=== PATIENT | female | born 1990 | race African-American/Black ===

== ENCOUNTER 2016-09-13 20:14 | Outpatient (CLI) | payer MEDICAID ==
[2016-09-13 21:16] LABS: APPEARANCE,URINE SLIGHTLY-CLOUDY; BILIRUBIN,URINE NEGATIVE (NEGATIVE); GLUCOSE, URINE NEGATIVE (NEGATIVE); KETONES,URINE NEGATIVE (NEGATIVE); LEUKOCYTE ESTERASE,URINE TRACE (NEGATIVE); NITRITE,URINE NEGATIVE (NEGATIVE); PROTEIN,URINE NEGATIVE (NEGATIVE); URINE SPECIFIC GRAVITY 1.024
[2016-09-13 21:35] LABS: URINE BARBITURATES SCREEN NEGATIVE; URINE METHADONE SCREEN NEGATIVE; URINE OPIATES LOW NEGATIVE; URINE PHENCYCLIDINE SCREEN NEGATIVE
--- NOTE | 2016-09-13 22:00 | L&D Flow Sheet ---
LD Flowsheet Datetime Report Generated by CPN: 09/13/2016 22:00 Datetime: 09/13/2016 21:41 Vital Signs NBP Sys/Leanna/Mean (mmHg): 118 (QS system process) : 73 (QS system process) : 90 (QS system process) Pulse: 99 (QS system process) Datetime: 09/13/2016 21:31 Patient Care Comments: ice provided (Sarahy Mcallitser RN) Datetime: 09/13/2016 21:29 Vaginal Exam Dilatation (cm): 2.0 (Sarahy Mcallister RN) Effacement (%): 50 (Sarahy Mcallister RN) Station: -2 (Sarahy Mcallister RN) Exam by: Imelda Mcallister RN (Sarahy Mcallister RN) Vaginal Bleeding: None (Sarahy Mcallister RN) Cervix, Consistency: Soft (Sarahy Mcallister RN) Cervix, Position: Posterior (Sarahy Mcallister RN) Vaginal Exam Comments: bollatable (Sarahy Esvin, RN) Datetime: 09/13/2016 21:26 Patient Care Comments: wet prep and gc/chlam collected (Sarahy Esvin, RN) Datetime: 09/13/2016 21:15 Uterine Activity Monitor Mode: External; Palpation (Sarahy Esvin, RN) Frequency (min): x2 (Sarahy Esvin, RN) Quality: Mild (Sarahy Esvin, RN) Duration (sec): 40-50 (Sarahy Esvin, RN) Duration Criteria: Less than Two 120 Second Contractions (Sarahy Esvin, RN) Pattern: Normal: <= 5 Contractions in 10 Minutes (Sarahy Esvin, RN) Resting Tone (Palpate): Relaxed (Sarahy Esvin, RN) Contraction Comments: irritability noted (Sarahy Esvin, RN) Datetime: 09/13/2016 21:14 Assessment A Monitor Mode: External US (Sarahy Esvin, RN) FHR Baseline Rate : 140 (Sarahy Esvin, RN) Variability: Moderate 6-25 bpm (Sarahy Esvin, RN) Accelerations: 15X15 (Sarahy Esvin, RN) Decelerations: None (Sarahy Esvin, RN) Datetime: 09/13/2016 21:13 Patient Care I/O Interventions: Up to BR (Sarahy Esvin, RN) Communication Communication Comments: Dr. Richardamn on unit and reviewed pt. arrival, complaint, hx, records faxed, fht, and toco tracing. New orders received to perform SVE, wet prep, and GC/Chlam swab at this time (Sarayh Esvin, RN) Datetime: 09/13/2016 20:41 Vital Signs NBP Sys/Elanna/Mean (mmHg): 126 (QS system process) : 86 (QS system process) : 101 (QS system process) Pulse: 88 (QS system process) Datetime: 09/13/2016 20:39 Maternal Assessment Level of Consciousness: Fully Conscious (Sarahy Esvin, RN) DTR's/Clonus: DTRs 2+; No Clonus (Sarahy Mcallister RN) Headache: Denies (Sarahy Mcallister RN) Breath Sounds, Right: Clear and Equal (Sarahy Mcallister RN) Nausea/Vomiting: Denies (Sarahy Mcallister RN) RUQ Epigastric Pain: Denies (Sarahy Mcallister RN)
[2016-09-13 23:25] LABS: CHLAM PCR NOT DETECTED (NOT DETECT)
--- NOTE | 2016-09-14 04:47 | L&D General Admission ---
General Admit Datetime Report Generated by CPN: 09/14/2016 04:45 INFORMATION Patient Age: 25 (09/13/2016 20:15:QS system process) EDC: 10/05/2016 00:00 (09/13/2016 20:26:Sarahy Villanuevaco, RN) EDC per Ultrasound: 10/05/2016 00:00 (09/13/2016 20:26:Sarahy Mcallister, RN) Baby, Number in Womb: 1 (09/14/2016 00:00:Sarahy Villanuevaco, RN) CARE Primary Web Content Specialist: [facility] (09/13/2016 20:26:Sarahy Esvin, RN) Height (in): 59 (09/13/2016 21:18:QS system process) ALLERGIES Medication Allergy: No (09/13/2016 20:26:Sarahy Esvin, RN) Medication Allergies: No Known Allergies (08/06/2012) (09/13/2016 20:15:QS system process) Latex Allergy: No Latex Allergies (09/13/2016 20:26:Sarahy Esvin, RN) COMMUNICATION Primary Language: Chinese (09/13/2016 20:26:Sarahy Esvin, RN) Medical Tx Preferred Language: Chinese (09/13/2016 20:26:Sarahy Esvin, RN) DEMOGRAPHICS Address: [address] [place] [id number] (09/13/2016 20:15:QS system process) Zipcode: [address] (09/13/2016 20:15:QS system process) Home (09/13/2016 20:15:QS system process) SSN: [id number] (09/13/2016 20:15:QS system process) Next of Kin Name: DELISA RAY (09/13/2016 20:15:QS system process) Next of Kin (09/13/2016 20:15:QS system process) Next of Kin Relationship: MO (09/13/2016 20:15:QS system process) Date of : 1990 (09/13/2016 20:15:QS system process) Marital Status: Single (09/13/2016 20:15:QS system process) Sex: Female (09/13/2016 20:15:QS system process) Race: (09/13/2016 20:15:QS system process) Ethnicity: Non- or (09/13/2016 20:15:QS system process) Yarsanism: None (09/13/2016 20:15:QS system process) LABS Gonorrhea: Negative (09/13/2016 20:26:Sarahy Mcallister RN) Chlamydia: Negative (09/13/2016 20:26:Sarahy Mcallister RN)
--- NOTE | 2016-09-14 04:47 | L&D Admission Assessment ---
LD ADM ASMT Datetime Report Generated by CPN: 09/14/2016 04:45 PATIENT ASSESSMENT Assessment Type: Triage (09/13/2016 20:39:Sarahy Esvin, RN) WEIGHT Weight (lb): 158 (09/13/2016 21:18:QS system process) Weight (kg): 71.8 (09/13/2016 21:18:QS system process) CONTRACTIONS Frequency (min): x2 (09/13/2016 23:41:Sarahy Esvin, RN) Frequency (min): x1 (09/13/2016 23:15:Sarahy Esvin, RN) Frequency (min): X1 (09/13/2016 22:45:Sarahy Esvin, RN) Frequency (min): x3 (09/13/2016 22:15:Sarahy Esvin, RN) Frequency (min): x1 (09/13/2016 21:45:Sarahy Esvin, RN) Frequency (min): x2 (09/13/2016 21:15:Sarahy Esvin, RN) Duration (sec): 40-60 (09/13/2016 23:41:Sarahy Esvin, RN) Duration (sec): 80 (09/13/2016 23:15:Sarahy Sevin, RN) Duration (sec): 60 (09/13/2016 22:45:Sarahy Esvin, RN) Duration (sec): 50-70 (09/13/2016 22:15:Sarahy Esvin, RN) Duration (sec): 50 (09/13/2016 21:45:Sarahy Esvin, RN) Duration (sec): 40-50 (09/13/2016 21:15:Sarahy Esvin, RN) Quality: Mild (09/13/2016 23:41:Sarahy Esvin, RN) Quality: Mild (09/13/2016 23:15:Sarahy Esvin, RN) Quality: Mild (09/13/2016 22:45:Sarahy Esvin, RN) Quality: Mild (09/13/2016 22:15:Sarahy Esvin, RN) Quality: Mild (09/13/2016 21:45:Sarahy Esvin, RN) Quality: Mild (09/13/2016 21:15:Sarahy Esvin, RN) Pattern: Normal: <= 5 Contractions in 10 Minutes (09/13/2016 23:41:Sarahy Esvin, RN) Pattern: Normal: <= 5 Contractions in 10 Minutes (09/13/2016 23:15:Sarahy Esvin, RN) Pattern: Normal: <= 5 Contractions in 10 Minutes (09/13/2016 22:45:Sarahy Esvin, RN) Pattern: Normal: <= 5 Contractions in 10 Minutes (09/13/2016 22:15:Sarahy Esvin, RN) Pattern: Normal: <= 5 Contractions in 10 Minutes (09/13/2016 21:45:Sarahy Esvin, RN) Pattern: Normal: <= 5 Contractions in 10 Minutes (09/13/2016 21:15:Sarahy Esvin, RN) Resting Tone [place]: Relaxed (09/13/2016 23:41:Sarahy Esvin, RN) Resting Tone [place]: Relaxed (09/13/2016 23:15:Sarahy Esvin, RN) Resting Tone [place]: Relaxed (09/13/2016 22:45:Sarahy Esvin, RN) Resting Tone [place]: Relaxed (09/13/2016 22:15:Sarahy Esvin, RN) Resting Tone [place]: Relaxed (09/13/2016 21:45:Sarahy Esvin, RN) Resting Tone [place]: Relaxed (09/13/2016 21:15:Sarahy Esvin, RN) Contraction Comments: irritability noted (09/13/2016 21:15:Sarahy Esvin, RN) VAGINAL EXAM Dilatation (cm): 2.0 (09/13/2016 23:41:Sarahy Esvin, RN) Dilatation (cm): 2.0 (09/13/2016 21:29:Sarahy Esvin, RN) Effacement (%): 50 (09/13/2016 23:41:Sarahy Esvin, RN) Effacement (%): 50 (09/13/2016 21:29:Sarahy Esvin, RN) Station: -1 (09/13/2016 23:41:Sarahy Esvin, RN) Station: -2 (09/13/2016 21:29:Sarahy Esvin, RN) NEURO Level of Consciousness: Fully Conscious (09/13/2016 20:39:Sarahy Esvin, RN) DTR's/Clonus: DTRs 2+; No Clonus (09/13/2016 20:39:Sarahy Esvin, RN) Headache: Denies (09/13/2016 20:39:Sarahy Esvin, RN) Dizziness: No (09/13/2016 20:39:Sarahy Esvin, RN) Blurred Vision: No (09/13/2016 20:39:Sarahy Esvin, RN) Extremity Numbness/Tingling : None (09/13/2016 20:39:Sarahy Esvin, RN) Extremity Movement: Full Range of Motion (09/13/2016 20:39:Sarahy Esvin, RN) CARDIOVASCULAR Heart Rhythm: Regular (09/13/2016 20:39:Sarahy Mcallister, RN) Nailbeds: [place] (09/13/2016 20:39:Sarahy Esvin, RN) Capillary Refill: Less than 3 Seconds (09/13/2016 20:39:Sarahy Esvin, RN) Lower Extremities Edema: None (09/13/2016 20:39:Sarahy Esvin, RN) Lower Extremities Edema Degree: None (09/13/2016 20:39:Sarahy Esvin, RN) Upper Extremities Edema: None (09/13/2016 20:39:Sarahy Esvin, RN) Upper Extremities Edema Degree: None (09/13/2016 20:39:Sarahy Esvin, RN) Facial Edema: None (09/13/2016 20:39:Sarahy Esvin, RN) Angela's Sign Left Leg: Negative (09/13/2016 20:39:Sarahy Esvin, RN) Angela's Sign Right Leg: Negative (09/13/2016 20:39:Sarahy Esvin, RN) DVT RISK ASSESSMENT DVT Risk Age: Age less than 41 years (09/13/2016 20:39:Sarahy Esvin, RN) DVT Risk BMI: BMI<31 (09/13/2016 20:39:Sarahy Mcallister RN) DVT Risk Surgery: None Applicable (09/13/2016 20:39:Sarahy Mcallister RN) DVT Risk Other: Women Only- or (<1 month) (09/13/2016 20:39:Sarahy Mcallister RN) DVT Risk Total: 1 (09/13/2016 20:39:QS system process) DVT Risk Text: Low Risk (<10%) No specific measures, early ambulation (09/13/2016 20:39:QS system process) RESPIRATORY Respiratory Effort: Unlabored; Regular Rhythm (09/13/2016 20:39:Sarahy Mcallister RN) Breath Sounds, Right: Clear and Equal (09/13/2016 20:39:Sarahy Mcallister RN) Cough Productivity: None (09/13/2016 20:39:Sarahy Mcallister RN) GASTROINTESTINAL Nausea/Vomiting: Denies (09/13/2016 20:39:Sarahy Mcallister RN) Bowel Sounds: Normoactive (09/13/2016 20:39:Sarahy Mcallister RN) RUQ Epigastric Pain: Denies (09/13/2016 20:39:Sarahy Mcallister RN) Bowel Patterns: Soft, Formed Stool (09/13/2016 20:39:Sarahy Mcallister RN) Hemorrhoids: None (09/13/2016 20:39:Sarahy Mcallister RN) Diet Type: Regular diet (09/13/2016 20:39:Sarahy Mcallister RN) GENITOURINARY Bladder: Nondistended (09/13/2016 20:39:Sarahy Mcallister RN) Frequency of Urination: No (09/13/2016 20:39:Sarahy Mcallister RN) Urination Burning: No (Annotations: pt. states that she has "been itchy down there for awhile") (09/13/2016 20:39:Sarahy Mcallister RN) CVA Tenderness: No (09/13/2016 20:39:Sarahy Mcallister RN) Vaginal Discharge Amount: None (09/13/2016 20:39:Sarahy Mcallister RN) Vaginal Discharge Color: Yellow (09/13/2016 20:39:Sarahy Mcallister RN) Vaginal Discharge Odor: Non-Odorous (09/13/2016 20:39:Sarahy Mcallister RN) Vaginal Discharge Character: Thick (09/13/2016 20:39:Sarahy Mcallister RN) INTEGUMENTARY Skin Color: Normal for Race (09/13/2016 20:39:Sarahy Mcallister RN) Skin Temperature: Warm (09/13/2016 20:39:Sarahy Mcallister RN) Skin Moisture: Dry (09/13/2016 20:39:Sarahy Esvin, RN) LIZA SKIN ASSESSMENT Liza Scale Sensory Perception: No Impairment- Responds to verbal commands. Has no sensory deficit which would limit ability to feel or voice pain or discomfort (09/13/2016 20:39:Sarahy Mcallister RN) Liza Scale Moisture: Rarely Moist- Skin is usually dry. Linen only requires changing at routine intervals (09/13/2016 20:39:Sarahy Mcallister RN) Liza Scale Activity: Walks Frequently- Walks outside the room at least twice a day and inside room at least every 2 hours during the day. (09/13/2016 20:39:Sarahy Mcallister RN) Liza Scale Mobility: No Limitations- Makes major and frequent changes in position without assistance (09/13/2016 20:39:Sarahy Mcallister RN) Liza Scale Nutrition: Excellent- Eats most of every meal. Never refuses a meal. Usually eats a total of 4 or more servings of meat and dairy products. Occasionally eats between meals. Does not require supplementation (09/13/2016 20:39:Sarahy Mcallister RN) Liza Scale Friction and Shear: No Apparent Problem- Moves in bed and in chair independently and has sufficient muscle strength to lift up completely during move. Maintains good position in bed or chair at all times (09/13/2016 20:39:Sarahy Mcallister RN) Liza Scale Total: 23 (09/13/2016 20:39:QS system process) Liza Scale Risk: No Risk of Pressure Ulcer Noted at this Time (09/13/2016 20:39:QS system process) SUPPORT Family Support: Family supportive (09/13/2016 20:39:Sarahy Mcallister RN) Emotional State: Calm/Relaxed (09/13/2016 20:39:Sarahy Mcallister RN) SAFETY Call Fung Within Reach: Yes (09/13/2016 20:39:Sarahy Mcallister RN) Side Rails Up: Yes (09/13/2016 20:39:Sarahy Mcallister RN) Bed Wheels Locked: Yes (09/13/2016 20:39:Sarahy Mcallister RN) Arm Bands Present: Yes (09/13/2016 20:39:Sarahy Mcallister RN) Isolation: [place] (09/13/2016 20:39:Sarahy Mcallister RN) FALL SCREEN Fall Risk History of Falling: (0) No (09/13/2016 20:39:Sarahy Mcallister RN) Fall Risk Secondary Diagnosis: (0) No (09/13/2016 20:39:Sarahy Mcallister RN) Fall Risk Ambulatory Aid: (0) None/Bedrest/Wheelchair/Nurse Assist (09/13/2016 20:39:Sarahy Mcallister RN) Fall Risk IV Therapy: (0) No (09/13/2016 20:39:Sarahy Mcallister RN) Fall Risk Gait: (0) Normal/Bedrest/Immobile (09/13/2016 20:39:Sarahy Mcallister RN) Fall Risk Mental Status: (0) Oriented to Own Ability (09/13/2016 20:39:Sarahy Mcallister RN) Fall Risk Score: 0 (09/13/2016 20:39:QS system process) Fall Risk Score Definition: No Risk: No action required (09/13/2016 20:39:QS system process) RECENT TRAVEL/INFECTIOUS DISEASE Recent Exp Communicable Disease: No (09/13/2016 20:39:Sarahy Mcallister RN) Cough or Fever: No (09/13/2016 20:39:Sarahy Mcallister RN) Foreign Travel Past 10 Days: No (09/13/2016 20:39:Sarahy Mcallister RN) Open Wounds or Sores: No (09/13/2016 20:39:Sarahy Mcallister RN) Prior Antibiotic Resistance Tx: No (09/13/2016 20:39:Sarahy Mcallister RN) Cultures Obtained: Not Applicable (09/13/2016 20:39:Sarahy Mcallister RN) Isolation Initiated: No (09/13/2016 20:39:Sarahy Mcallister RN) Pt/Family Education: Not Applicable (09/13/2016 20:39:Sarahy Mcallister RN) BABY A FHR Baseline Rate (bpm) Baby A: 135 (09/13/2016 23:41:Sarahy Mcallister RN) FHR Baseline Rate (bpm) Baby A: 135 (09/13/2016 23:15:Sarahy Mcallister RN) FHR Baseline Rate (bpm) Baby A: 135 (09/13/2016 22:45:Sarahy Mcallister RN) FHR Baseline Rate (bpm) Baby A: 135 (09/13/2016 22:15:Sarahy Mcallister RN) FHR Baseline Rate (bpm) Baby A: 140 (09/13/2016 21:45:Sarahy Esvin, RN) FHR Baseline Rate (bpm) Baby A: 140 (09/13/2016 21:15:Sarahy Esvin, RN) Variability Baby A: Moderate 6-25 bpm (09/13/2016 23:41:Sarahy Esvin, RN) Variability Baby A: Moderate 6-25 bpm (09/13/2016 23:15:Sarahy Esvin, RN) Variability Baby A: Moderate 6-25 bpm (09/13/2016 22:45:Sarahy Esvin, RN) Variability Baby A: Moderate 6-25 bpm (09/13/2016 22:15:Sarahy Esvin, RN) Variability Baby A: Moderate 6-25 bpm (09/13/2016 21:45:Sarahy Esvin, RN) Variability Baby A: Moderate 6-25 bpm (09/13/2016 21:15:Sarahy Esvin, RN) Accelerations Baby A: 15X15 (09/13/2016 23:41:Sarahy Esvin, RN) Accelerations Baby A: 15X15 (09/13/2016 23:15:Sarahy Esvin, RN) Accelerations Baby A: 15X15 (09/13/2016 22:45:Sarahy Esvin, RN) Accelerations Baby A: 15X15 (09/13/2016 22:15:Sarahy Esvin, RN) Accelerations Baby A: 15X15 (09/13/2016 21:45:Sarahy Esvin, RN) Accelerations Baby A: 15X15 (09/13/2016 21:15:Sarahy Esvin, RN) Decelerations Baby A: None (09/13/2016 23:41:Sarahy Esvin, RN) Decelerations Baby A: None (09/13/2016 23:15:Sarahy Esvin, RN) Decelerations Baby A: None (09/13/2016 22:45:Sarahy Esvin, RN) Decelerations Baby A: None (09/13/2016 22:15:Sarahy Esvin, RN) Decelerations Baby A: None (09/13/2016 21:45:Sarahy Esvin, RN) Decelerations Baby A: None (09/13/2016 21:15:Sarahy Esvin, RN)
--- NOTE | 2016-09-14 04:47 | Antepartum Discharge Summary ---
Antepartum DC Datetime Report Generated by CPN: 09/14/2016 04:45 DIET/ACTIVITY/RESTRICTIONS Diet: Regular (09/14/2016 00:00:Sarahy Esvin, RN) Activity: Normal Activity (09/14/2016 00:00:Sarahy Esvin, RN) TEACHING/INSTRUCTIONS/REFERRALS Instructions Understood: Patient Verbalized Understanding (09/14/2016 00:00:Sarahy Esvin, RN) Referrals: None (09/14/2016 00:00:Sarahy Esvin, RN) Educational Materials- Other: care notes on the labor process and and dehydration (09/14/2016 00:00:Sarahy Mcallister RN) DISCHARGE INFORMATION Discharged AMA: No (09/14/2016 00:00:Sarahy Mcallister RN) Discharge Date/Time: 09/13/2016 23:53 (09/14/2016 00:00:Sarahy Mcallister RN) Discharged To: Home (09/14/2016 00:00:Sarahy Mcallister RN) Discharge Provider Name: Dr. Best (09/14/2016 00:00:Sarahy Mcallister RN) Accompanied By: family (09/14/2016 00:00:Sarahy Mcallister RN) Discharge Method: Wheelchair (09/14/2016 00:00:Sarahy Mcallister RN) Condition: Stable (09/14/2016 00:00:Sarahy Mcallister RN) FOLLOW UP INFORMATION Follow Up With: Health Department (09/14/2016 00:00:Sarahy Mcallister RN) Follow Up On: As Scheduled (09/14/2016 00:00:Sarahy Mcallister RN) Comments: Pt. d/c to home ambulatory and in stable condition at this time. Pt. denies nay further needs and states that her pain is manageable. Pt. states she will f/u with her provider as scheduled. All pt belongings were taken with pt. Pt. off unit and care relinquished at this time (09/14/2016 00:00:Sarahy Mcallister RN)
--- NOTE | 2016-09-14 04:47 | L&D Discharge Summary ---
OB Discharge Summary Datetime Report Generated by CPN: 09/14/2016 04:45 DISCHARGE DIAGNOSIS Diagnoses/Symptoms Other: false labor Gestation: 36.6 Number of Babies in Womb: 1 DIET/ACTIVITY/RESTRICTIONS Diet: Regular Activity: Normal Activity TEACHING/INSTRUCTIONS/REFERRALS Instructions Understood: Patient Verbalized Understanding Referrals: None Educational Materials- Other: care notes on the labor process and and dehydration DISCHARGE INFORMATION Discharged AMA: No Discharge Date/Time: 09/13/2016 23:53 Discharged To: Home Discharge Provider Name: Dr. Best Accompanied By: family Discharge Method: Wheelchair Condition: Stable FOLLOW UP INFORMATION Follow Up With: Health Department Follow Up On: As Scheduled Comments: Pt. d/c to home ambulatory and in stable condition at this time. Pt. denies nay further needs and states that her pain is manageable. Pt. states she will f/u with her provider as scheduled. All pt belongings were taken with pt. Pt. off unit and care relinquished at this time
--- NOTE | 2016-09-14 04:47 | L&D Flow Sheet ---
LD Flowsheet Datetime Report Generated by CPN: 09/14/2016 04:45 Datetime: 09/13/2016 23:53 Communication Communication Comments: pt. d/c'd to home at this time. See discharge summary for more information (Sarahy Esvin, RN) Datetime: 09/13/2016 23:48 Communication Communication Comments: Care notes taught and reviewed on and dehydtration and the labor process. Pt. able to perform teachback with no diffculties noted. Pt. denies any questions or concerns at this time. (Sarahy Esvin, RN) Datetime: 09/13/2016 23:41 Uterine Activity Monitor Mode: External (Sarahy Esvin, RN) Frequency (min): x2 (Sarahy Esvin, RN) Quality: Mild (Sarahy Esvin, RN) Duration (sec): 40-60 (Sarahy Esvin, RN) Duration Criteria: Less than Two 120 Second Contractions (Sarahy Esvin, RN) Pattern: Normal: <= 5 Contractions in 10 Minutes (Sarahy Esvin, RN) Resting Tone (Palpate): Relaxed (Sarahy Esvin, RN) Assessment A Monitor Mode: External US (Sarahy Esvin, RN) FHR Baseline Rate : 135 (Sarahy Esvin, RN) Variability: Moderate 6-25 bpm (Sarahy Esvin, RN) Accelerations: 15X15 (Sarahy Esvin, RN) Decelerations: None (Sarahy Esvin, RN) Vaginal Exam Dilatation (cm): 2.0 (Sarahy Esvin, RN) Effacement (%): 50 (Sarahy Mcallister, RN) Station: -1 (Sarahy Mcallister, RN) Exam by: Imelda Mcallister RN (Sarahy Mcallister RN) Vaginal Exam Comments: bollatable (Sarahy Esvin, RN) Datetime: 09/13/2016 23:40 NBP Sys/Leanna/Mean (mmHg): 113 (QS system process) : 77 (QS system process) : 91 (QS system process) Pulse: 96 (QS system process) Temperature (F): 98.3 (Sarahy Mcallister, RN) Temperature (C): 36.8 (QS system process) Temperature Route: Oral (Sarahy Mcallister RN) LaborFlag: OB Triage (QS system process) Datetime: 09/13/2016 23:39 Communication Communication Comments: pt. made aware of POC at this time. Verbalizes understanding and denies any questions or concerns at this time (Sarahy Esvin, RN) Datetime: 09/13/2016 23:35 Vital Signs Stage of : OB Triage (Sarahy Esvin, RN) Communication Communication Comments: wet prep wnl, gc/chlam negative (Sarahy Esvin, RN) Datetime: 09/13/2016 23:15 Uterine Activity Monitor Mode: External (Sarahy Esvin, RN) Frequency (min): x1 (Sarahy Esvin, RN) Quality: Mild (Sarahy Esvin, RN) Duration (sec): 80 (Sarahy Esvin, RN) Duration Criteria: Less than Two 120 Second Contractions (Sarahy Esvin, RN) Pattern: Normal: <= 5 Contractions in 10 Minutes (Sarahy Esvin, RN) Resting Tone (Palpate): Relaxed (Sarahy Esvin, RN) Assessment A Monitor Mode: External US (Sarahy Esvin, RN) FHR Baseline Rate : 135 (Sarahy Esvin, RN) Variability: Moderate 6-25 bpm (Sarahy Esvin, RN) Accelerations: 15X15 (Sarahy Esvin, RN) Decelerations: None (Sarahy Esvin, RN) Datetime: 09/13/2016 23:12 NBP Sys/Leanna/Mean (mmHg): 120 (QS system process) : 88 (QS system process) : 99 (QS system process) Pulse: 85 (QS system process) LaborFlag: OB Triage (QS system process) Datetime: 09/13/2016 23:00 Communication Communication Comments: Pt. made aware that we are awaiting one more lab results at this time. She verbalizes understanding and denies any questions or concerns at this time (Sarahy Esvin, RN) Datetime: 09/13/2016 22:45 Uterine Activity Monitor Mode: External (Sarahy Esvin, RN) Frequency (min): X1 (Sarahy Esvin, RN) Quality: Mild (Sarahy Esvin, RN) Duration (sec): 60 (Sarahy Esvin, RN) Duration Criteria: Less than Two 120 Second Contractions (Sarahy Esvin, RN) Pattern: Normal: <= 5 Contractions in 10 Minutes (Sarahy Esvin, RN) Resting Tone (Palpate): Relaxed (Sarahy Esvin, RN) Assessment A Monitor Mode: External US (Sarahy Esvin, RN) FHR Baseline Rate : 135 (Sarahy Esvin, RN) Variability: Moderate 6-25 bpm (Sarahy Esvin, RN) Accelerations: 15X15 (Sarayh Esvin, RN) Decelerations: None (Sarahy Esvin, RN) Datetime: 09/13/2016 22:41 NBP Sys/Leanna/Mean (mmHg): 104 (QS system process) : 61 (QS system process) : 77 (QS system process) Pulse: 97 (QS system process) LaborFlag: OB Triage (QS system process) Datetime: 09/13/2016 22:25 Communication Communication Comments: Dr. Nasir on unit and reviewed labs at this time. New orders recieved to perform SVE 1 hour from first check, wait for GC/chlam results to return, obtain pt. phone number, and if SVE unchagned pt. may d/c to home (Sarahy Esvin, RN) Datetime: 09/13/2016 22:15 Uterine Activity Monitor Mode: External (Sarahy Esvin, RN) Frequency (min): x3 (Sarahy Esvin, RN) Quality: Mild (Sarahy Esvin, RN) Duration (sec): 50-70 (Sarahy Esvin, RN) Duration Criteria: Less than Two 120 Second Contractions (Sarahy Esvin, RN) Pattern: Normal: <= 5 Contractions in 10 Minutes (Sarahy Esvin, RN) Resting Tone (Palpate): Relaxed (Sarahy Esvin, RN) Assessment A Monitor Mode: External US (Sarahy Esvin, RN) FHR Baseline Rate : 135 (Sarahy Esvin, RN) Variability: Moderate 6-25 bpm (Sarahy Esvin, RN) Accelerations: 15X15 (Sarahy Esvin, RN) Decelerations: None (Sarahy Esvin, RN) Datetime: 09/13/2016 22:11 NBP Sys/Leanna/Mean (mmHg): 114 (QS system process) : 73 (QS system process) : 90 (QS system process) Pulse: 91 (QS system process) LaborFlag: OB Triage (QS system process) Datetime: 09/13/2016 21:45 Uterine Activity Monitor Mode: External (Sarahy Esvin, RN) Frequency (min): x1 (Sarahy Esvin, RN) Quality: Mild (Sarahy Esvin, RN) Duration (sec): 50 (Sarahy Esvin, RN) Duration Criteria: Less than Two 120 Second Contractions (Sarahy Esvin, RN) Pattern: Normal: <= 5 Contractions in 10 Minutes (Sarahy Esvin, RN) Resting Tone (Palpate): Relaxed (Sarahy Esvin, RN) Assessment A Monitor Mode: External US (Sarahy Esvin, RN) FHR Baseline Rate : 140 (Sarahy Esvin, RN) Variability: Moderate 6-25 bpm (Sarahy Esvin, RN) Accelerations: 15X15 (Sarahy Esvin, RN) Decelerations: None (Sarahy Esvin, RN) Datetime: 09/13/2016 21:41 NBP Sys/Leanna/Mean (mmHg): 118 (QS system process) : 73 (QS system process) : 90 (QS system process) Pulse: 99 (QS system process) LaborFlag: OB Triage (QS system process) Datetime: 09/13/2016 21:31 Patient Care Comments: ice provided (Sarahy Esvin, RN) Datetime: 09/13/2016 21:29 Vaginal Exam Dilatation (cm): 2.0 (Sarahy Esvin, RN) Effacement (%): 50 (Sarahy Esvin, RN) Station: -2 (Sarahy Esvin, RN) Exam by: Imelda Mcallister RN (Sarahy Esvin, RN) Vaginal Bleeding: None (Sarahy Esvin, RN) Cervix, Consistency: Soft (Sarahy Esvin, RN) Cervix, Position: Posterior (Sarahy Esvin, RN) Vaginal Exam Comments: bollatable (Sarahy Esvin, RN) Datetime: 09/13/2016 21:26 Patient Care Comments: wet prep and gc/chlam collected (Sarahy Esvin, RN) Datetime: 09/13/2016 21:15 Uterine Activity Monitor Mode: External; Palpation (Sarahy Esvin, RN) Frequency (min): x2 (Sarahy Esvin, RN) Quality: Mild (Sarahy Esvin, RN) Duration (sec): 40-50 (Sarahy Esvin, RN) Duration Criteria: Less than Two 120 Second Contractions (Sarahy Esvin, RN) Pattern: Normal: <= 5 Contractions in 10 Minutes (Sarahy Esvin, RN) Resting Tone (Palpate): Relaxed (Sarahy Esvin, RN) Contraction Comments: irritability noted (Sarahy Esvin, RN) Assessment A Monitor Mode: External US (Sarahy Esvin, RN) FHR Baseline Rate : 140 (Sarahy Esvin, RN) Variability: Moderate 6-25 bpm (Sarahy Esvin, RN) Accelerations: 15X15 (Sarahy Esvin, RN) Decelerations: None (Sarahy Esvin, RN) Datetime: 09/13/2016 21:13 Patient Care I/O Interventions: Up to BR (Sarahy Esvin, RN) Communication Communication Comments: Dr. Hoffamn on unit and reviewed pt. arrival, complaint, hx, records faxed, fht, and toco tracing. New orders received to perform SVE, wet prep, and GC/Chlam swab at this time (Sarahy Esvin, RN) Datetime: 09/13/2016 21:00 Vital Signs Stage of : OB Triage (Sarahy Esvin, RN) Datetime: 09/13/2016 20:41 NBP Sys/Leanna/Mean (mmHg): 126 (QS system process) : 86 (QS system process) : 101 (QS system process) Pulse: 88 (QS system process) Datetime: 09/13/2016 20:39 Maternal Assessment Level of Consciousness: Fully Conscious (Sarahy Esvin, RN) DTR's/Clonus: DTRs 2+; No Clonus (Sarahy Esvin, RN) Headache: Denies (Sarahy Esvin, RN) Breath Sounds, Right: Clear and Equal (Sarahy Esvin, RN) Nausea/Vomiting: Denies (Sarahy Esvin, RN) RUQ Epigastric Pain: Denies (Sarahy Esvin, RN)
== END 2016-09-13 23:51 | disposition home or self-care (01) ==
LOC: LC 20:14
PROVIDERS: ATTEND Student in an Organized Health Care Education/Training Program
PROC: 4A1HXCZ Monitoring of Products of Conception, Cardiac Rate, External Approach (ICD-10-PCS; principal; 2016-09-13)
DX: O47.03 False labor before 37 completed weeks of gestation, third trimester (principal); Z3A.36 36 weeks gestation of pregnancy
CPT/HCPCS: 59025; 80307; 81001; 87086; 87210; 87491; 87591

== ENCOUNTER 2016-09-14 06:06 | Inpatient (IN) | payer MEDICAID ==
[2016-09-14] MEDS ORDERED: RINGERS SOLUTION,LACTATED 1,000 ML IV ONE (06:28)
[2016-09-14] MEDS ORDERED: RINGERS SOLUTION,LACTATED 1,000 ML IV PRN (06:28)
[2016-09-14] MEDS ORDERED: PENICILLIN G POTASSIUM 5,000,000 UNIT in DEXTROSE 5%-WATER 100 ML IV ONE (06:28)
[2016-09-14] MEDS ORDERED: PENICILLIN G-K 5 MILLION UNIT VIAL ONE ×2 (06:32→12:29)
[2016-09-14 06:44] LABS: AMNISURE (ROM) POSITIVE (NEGATIVE)
[2016-09-14 06:46] LABS: APPEARANCE,URINE CLEAR; BILIRUBIN,URINE NEGATIVE (NEGATIVE); GLUCOSE, URINE NEGATIVE (NEGATIVE); KETONES,URINE NEGATIVE (NEGATIVE); LEUKOCYTE ESTERASE,URINE NEGATIVE (NEGATIVE); NITRITE,URINE NEGATIVE (NEGATIVE); PROTEIN,URINE NEGATIVE (NEGATIVE); URINE SPECIFIC GRAVITY 1.008; UROBILINOGEN,URINE NEGATIVE mg/dL (<2.0)
[2016-09-14 07:02] LABS: ABSOLUTE LYMPHOCYTES (AUTO) 1.3 10^3/uL (0.5-4.7); ABSOLUTE MONOCYTES (AUTO) 0.5 10^3/uL (0.1-1.4); ABSOLUTE NEUT (AUTO) 4.8 10^3/uL (1.7-8.2); BASOPHILS % (AUTO) 0.7 % (0-2); EOSINOPHILS % (AUTO) 0.6 % (0-6); HEMATOCRIT 37.5 % (36.0-47.0); HEMOGLOBIN 12.5 g/dL (12.0-15.5); LYMPHOCYTES % (AUTO) 19.5 % (13-45); MEAN CORPUSCULAR HEMOGLOBIN 28.6 pg (27.0-33.4); MEAN CORPUSCULAR HGB CONC 33.3 g/dL (32.0-36.0); MEAN CORPUSCULAR VOLUME 86 fl (80-97); MONOCYTES % (AUTO) 7.9 % (3-13); RED BLOOD COUNT 4.36 10^6/uL (3.72-5.28); RED CELL DISTRIBUTION WIDTH 15.2 % (11.5-14.0); SEGMENTED NEUTROPHILS % (AUTO) 71.3 % (42-78); WHITE BLOOD COUNT 6.7 10^3/uL (4.0-10.5)
[2016-09-14 07:06] LABS: URINE BARBITURATES SCREEN NEGATIVE; URINE METHADONE SCREEN NEGATIVE; URINE OPIATES LOW NEGATIVE; URINE PHENCYCLIDINE SCREEN NEGATIVE
--- NOTE | 2016-09-14 08:01 | L&D Flow Sheet ---
LD Flowsheet Datetime Report Generated by CPN: 09/14/2016 08:00 Datetime: 09/14/2016 07:39 NBP Sys/Leanna/Mean (mmHg): 126 (QS system process) : 81 (QS system process) : 99 (QS system process) Pulse: 95 (QS system process) LaborFlag: OB Triage (QS system process) Datetime: 09/14/2016 07:36 Communication Comments: Report to RN Halsmer, care relinquished. (Connie Virginiaann, RN) Datetime: 09/14/2016 07:30 Monitor Mode: External; Palpation (Connie Kossmann, RN) Frequency (min): irregular (Connie Kossmann, RN) Quality: Mild (Connie Kossmann, RN) Duration (sec): 90-120 (Connie Kossmann, RN) Resting Tone (Palpate): Relaxed (Connie Kossmann, RN) Monitor Mode: External US (Connie Kossmann, RN) FHR Baseline Rate : 140 (Connie Kossmann, RN) Variability: Moderate 6-25 bpm (Connie Kossmann, RN) Accelerations: 15X15 (Connie Kossmann, RN) Decelerations: None (Connie Kossmann, RN) Datetime: 09/14/2016 07:15 Monitor Mode: External; Palpation (Connie Kossmann, RN) Frequency (min): irregular (Connie Kossmann, RN) Quality: Mild (Connie Kossmann, RN) Duration (sec): 40-100 (Connie Kossmann, RN) Resting Tone (Palpate): Relaxed (Connie Card RN) Monitor Mode: External US (Connie Card RN) FHR Baseline Rate : 135 (Connie Card RN) Variability: Moderate 6-25 bpm (Connie Card RN) Decelerations: Variable (Connie Card, RN) Datetime: 09/14/2016 07:07 NBP Sys/Leanna/Mean (mmHg): 117 (QS system process) : 81 (QS system process) : 94 (QS system process) Pulse: 100 (QS system process) LaborFlag: OB Triage (QS system process) Datetime: 09/14/2016 07:00 Monitor Mode: External; Palpation (Connie Card RN) Frequency (min): irregular (Connie Card RN) Quality: Mild (Connie Card RN) Duration (sec): 50-60 (Connie Card RN) Resting Tone (Palpate): Relaxed (Connie Card RN) Monitor Mode: External US (Connie Card RN) FHR Baseline Rate : 140 (Connie Card, RN) Variability: Moderate 6-25 bpm (Connie Card, RN) Accelerations: 10X10 (Connie Card, RN) Decelerations: None (Connie Card, RN) Datetime: 09/14/2016 06:45 Monitor Mode: External; Palpation (Connie Card RN) Frequency (min): irregular (Connie Card, RN) Quality: Mild (Connie Card, RN) Duration (sec): 40-70 (Connie Card, RN) Resting Tone (Palpate): Relaxed (Connie Card RN) Monitor Mode: External US (Connie Card RN) FHR Baseline Rate : 145 (Connie Card, RN) Variability: Moderate 6-25 bpm (Connie Card, RN) Accelerations: 15X15 (Connie Card, RN) Decelerations: None (Connie Card, RN) IV/Blood Work: IV ACCESS ATTEMPTED X 4 TIMES. UNABLE TO OBTAIN. PATIENT WRAPPED IN WARM BLANKETS IN ATTEMPT TO WARM ARMS FOR NEXT ATTEMPT. (Connie Card RN) Datetime: 09/14/2016 06:37 NBP Sys/Leanna/Mean (mmHg): 123 (QS system process) : 86 (QS system process) : 100 (QS system process) Pulse: 103 (QS system process) Temperature (F): 97.8 (Connie Card RN) Temperature (C): 36.6 (QS system process) Temperature Route: Oral (Connie Card RN) Pain Scale: 0 (Connie Card RN) Pain Presence: None/Denies (Connie Card RN) Pain Type: N/A (Connie Card RN) LaborFlag: OB Triage (QS system process) Datetime: 09/14/2016 06:35 Monitor Interventions for UA: [place] Adjusted (Connie Card RN) Monitor Interventions for FHR: Ultrasound Adjusted (Connie Card RN) Datetime: 09/14/2016 06:26 Dilatation (cm): 2.0 (Connie Card RN) Effacement (%): 50 (Connie Card RN) Station: -3 (Annotations: ballotable) (Connie Card RN) Exam by: ASHLEY Card (Connie Card RN) Membranes Ruptured Date/Time: 09/14/2016 05:00 (Connie Card RN) Membranes Rupture Method: Spontaneous (Connie Card RN) Amniotic Fluid Color: Clear (Connie Card RN) Amniotic Fluid Amount: Moderate (Connie Card RN) Amniotic Fluid Odor: Normal (Connie Card RN) Datetime: 09/13/2016 23:53 Communication Comments: pt. d/c'd to home at this time. See discharge summary for more information (Sarahy Mcallister RN) Datetime: 09/13/2016 23:48 Communication Comments: Care notes taught and reviewed on and dehydtration and the labor process. Pt. able to perform teachback with no diffculties noted. Pt. denies any questions or concerns at this time. (Sarahy Mcallister RN) Datetime: 09/13/2016 23:41 Monitor Mode: External (Sarahy Mcallister, ASHLEY) Frequency (min): x2 (Sarahy Mcallister RN) Quality: Mild (Sarahy Mcallister RN) Duration (sec): 40-60 (Sarahy Mcallister, ASHLEY) Duration Criteria: Less than Two 120 Second Contractions (Sarahy Mcallister RN) Pattern: Normal: <= 5 Contractions in 10 Minutes (Sarahy Mcallister RN) Resting Tone (Palpate): Relaxed (Sarahy Mcallister RN) Monitor Mode: External US (Sarahy Mcallister RN) FHR Baseline Rate : 135 (Sarahy Mcallister, RN) Variability: Moderate 6-25 bpm (Sarahy Mcallister, RN) Accelerations: 15X15 (Sarahy Mcallister, RN) Decelerations: None (Sarahy Mcallister RN) Dilatation (cm): 2.0 (Sarahy Mcallister, RN) Effacement (%): 50 (Sarahy Mcallister RN) Station: -2 (Sarahy Mcallister RN) Exam by: Imelda Mcallister RN (Sarahy Mcallister RN) Vaginal Exam Comments: bollatable (Sarahy Mcallister RN) Datetime: 09/13/2016 23:40 NBP Sys/Leanna/Mean (mmHg): 113 (QS system process) : 77 (QS system process) : 91 (QS system process) Pulse: 96 (QS system process) Temperature (F): 98.3 (Sarahy Esvin, RN) Temperature (C): 36.8 (QS system process) Temperature Route: Oral (Sarahy Esvin, RN) LaborFlag: OB Triage (QS system process) Datetime: 09/13/2016 23:39 Communication Comments: pt. made aware of POC at this time. Verbalizes understanding and denies any questions or concerns at this time (Sarahy Esvin, RN) Datetime: 09/13/2016 23:35 Stage of : OB Triage (Sarahy Esvin, RN) Communication Comments: wet prep wnl, gc/chlam negative (Sarahy Esvin, RN) Datetime: 09/13/2016 23:15 Monitor Mode: External (Sarahy Esvin, RN) Frequency (min): x1 (Sarahy Esvin, RN) Quality: Mild (Sarahy Esvin, RN) Duration (sec): 80 (Sarahy Esvin, RN) Duration Criteria: Less than Two 120 Second Contractions (Sarahy Esvin, RN) Pattern: Normal: <= 5 Contractions in 10 Minutes (Sarahy Esvin, RN) Resting Tone (Palpate): Relaxed (Sarahy Esvin, RN) Monitor Mode: External US (Sarahy Esvin, RN) FHR Baseline Rate : 135 (Sarahy Esvin, RN) Variability: Moderate 6-25 bpm (Sarahy Esvin, RN) Accelerations: 15X15 (Sarahy Esvin, RN) Decelerations: None (Sarahy Esvin, RN) Datetime: 09/13/2016 23:12 NBP Sys/Leanna/Mean (mmHg): 120 (QS system process) : 88 (QS system process) : 99 (QS system process) Pulse: 85 (QS system process) LaborFlag: OB Triage (QS system process) Datetime: 09/13/2016 23:00 Communication Comments: Pt. made aware that we are awaiting one more lab results at this time. She verbalizes understanding and denies any questions or concerns at this time (Sarahy Esvin, RN) Datetime: 09/13/2016 22:45 Monitor Mode: External (Sarahy Esvin, RN) Frequency (min): X1 (Sarahy Esvin, RN) Quality: Mild (Sarahy Esvin, RN) Duration (sec): 60 (Sarahy Esvin, RN) Duration Criteria: Less than Two 120 Second Contractions (Sarahy Esvin, RN) Pattern: Normal: <= 5 Contractions in 10 Minutes (Sarahy Esvin, RN) Resting Tone (Palpate): Relaxed (Sarahy Esvin, RN) Monitor Mode: External US (Sarahy Esvin, RN) FHR Baseline Rate : 135 (Sarahy Esvin, RN) Variability: Moderate 6-25 bpm (Sarahy Esvin, RN) Accelerations: 15X15 (Sarahy Esvin, RN) Decelerations: None (Sarahy Esvin, RN) Datetime: 09/13/2016 22:41 NBP Sys/Leanna/Mean (mmHg): 104 (QS system process) : 61 (QS system process) : 77 (QS system process) Pulse: 97 (QS system process) LaborFlag: OB Triage (QS system process) Datetime: 09/13/2016 22:25 Communication Comments: Dr. Best on unit and reviewed labs at this time. New orders recieved to perform SVE 1 hour from first check, wait for GC/chlam results to return, obtain pt. phone number, and if SVE unchagned pt. may d/c to home (Sarahy Esvin, RN) Datetime: 09/13/2016 22:15 Monitor Mode: External (Sarahy Esvin, RN) Frequency (min): x3 (Sarahy Esvin, RN) Quality: Mild (Sarahy Esvin, RN) Duration (sec): 50-70 (Sarahy Esvin, RN) Duration Criteria: Less than Two 120 Second Contractions (Sarahy Esvin, RN) Pattern: Normal: <= 5 Contractions in 10 Minutes (Sarahy Esvin, RN) Resting Tone (Palpate): Relaxed (Sarahy Esvin, RN) Monitor Mode: External US (Sarahy Esvin, RN) FHR Baseline Rate : 135 (Sarahy Esvin, RN) Variability: Moderate 6-25 bpm (Sarahy Esvin, RN) Accelerations: 15X15 (Sarahy Esvin, RN) Decelerations: None (Sarahy Esvin, RN) Datetime: 09/13/2016 22:11 NBP Sys/Leanna/Mean (mmHg): 114 (QS system process) : 73 (QS system process) : 90 (QS system process) Pulse: 91 (QS system process) LaborFlag: OB Triage (QS system process)
[2016-09-14] MEDS ORDERED: OXYTOCIN/NORMAL SALINE 20 UNIT/1,000 ML RTUINJ ONE ×2 (09:07→13:52)
--- NOTE | 2016-09-14 10:00 | L&D Flow Sheet ---
LD Flowsheet Datetime Report Generated by CPN: 09/14/2016 10:00 Datetime: 09/14/2016 09:45 Monitor Mode: External (Merna Quiroga, RN) Frequency (min): 3-8 (Merna Quiroga, RN) Quality: Mild (Merna Arizaer, RN) Duration (sec): 50-80 (Merna Quiroga, RN) Resting Tone (Palpate): Relaxed (Merna Quiroga, RN) Monitor Mode: External US (Merna Quiroga, RN) FHR Baseline Rate : 140 (Merna Arizaer, RN) FHR Baseline Changes: No Baseline Change (Merna Arizaer, RN) Variability: Minimal - Undetectable to <=5 bpm (Merna Arizaer, RN) Decelerations: None (Merna Quiroga, RN) Pitocin (milliunit): Pitocin Increased to (milliunits) @ (Annotations: 4) (Merna Quiroga, RN) Datetime: 09/14/2016 09:38 NBP Sys/Leanna/Mean (mmHg): 136 (QS system process) : 61 (QS system process) : 82 (QS system process) Pulse: 109 (QS system process) Respirations: 16 (Merna Arizaer, RN) LaborFlag: OB Triage (QS system process) Datetime: 09/14/2016 09:30 Monitor Mode: External (Merna Halsmer, RN) Frequency (min): 3-5 (Merna Halsmer, RN) Quality: Mild (Merna Halsmer, RN) Duration (sec): 40-60 (Merna Halsmer, RN) Resting Tone (Palpate): Relaxed (Merna Halsmer, RN) Monitor Mode: External US (Merna Halsmer, RN) FHR Baseline Rate : 140 (Merna Halsmer, RN) FHR Baseline Changes: No Baseline Change (Merna Halsmer, RN) Variability: Minimal - Undetectable to <=5 bpm (Merna Halsmer, RN) Decelerations: None (Merna Halsmer, RN) Datetime: 09/14/2016 09:25 Pitocin (milliunit): Pitocin Started (milliunits) @ 2; Pitocin 20 Units in 1000ml NS (Merna Halsmer, RN) Datetime: 09/14/2016 09:14 I/O Interventions: Up to BR (Merna Halsmer, RN) Datetime: 09/14/2016 09:00 Monitor Mode: External (Merna Halsmer, RN) Frequency (min): OCC (Merna Halsmer, RN) Quality: Mild (Merna Halsmer, RN) Duration (sec): 50-80 (Merna Halsmer, RN) Resting Tone (Palpate): Relaxed (Merna Halsmer, RN) Monitor Mode: External US (Merna Halsmer, RN) FHR Baseline Rate : 150 (Merna Halsmer, RN) FHR Baseline Changes: No Baseline Change (Merna Halsmer, RN) Variability: Moderate 6-25 bpm (Merna Halsmer, RN) Accelerations: 15X15 (Merna Halsmer, RN) Decelerations: None (Merna Halsmer, RN) Datetime: 09/14/2016 08:37 NBP Sys/Leanna/Mean (mmHg): 108 (QS system process) : 73 (QS system process) : 85 (QS system process) Pulse: 94 (QS system process) Respirations: 16 (Merna Halsmer, RN) LaborFlag: OB Triage (QS system process) Datetime: 09/14/2016 08:30 Monitor Mode: External (Merna Halsmer, RN) Frequency (min): OCC (Merna Halsmer, RN) Quality: Mild (Merna Halsmer, RN) Resting Tone (Palpate): Relaxed (Merna Quiroga RN) Monitor Mode: External US (Merna Quiroga RN) FHR Baseline Rate : 140 (Merna Quiroga RN) FHR Baseline Changes: No Baseline Change (Merna Quiroga RN) Variability: Minimal - Undetectable to <=5 bpm (Merna Quiroga RN) Decelerations: None (Merna Quiroga RN) Datetime: 09/14/2016 08:09 NBP Sys/Leanna/Mean (mmHg): 109 (QS system process) : 73 (QS system process) : 84 (QS system process) Pulse: 98 (QS system process) Respirations: 16 (Merna Quiroga RN) LaborFlag: OB Triage (QS system process) Datetime: 09/14/2016 08:05 Patient Position/Activity: Left Lateral (Merna Quiroga RN) Hygiene: Underpad Changed (Merna Quiroga RN) Communication: RN at Bedside; RN Reviewed Strip (Merna Quiroga RN) Datetime: 09/14/2016 08:00 Monitor Mode: External; Palpation (Merna Quiroga RN) Frequency (min): 3-5 (Merna Quiroga RN) Quality: Mild (Merna Quiroga RN) Duration (sec): 50-70 (Merna Quiroga RN) Resting Tone (Palpate): Relaxed (Merna Quiroga RN) Monitor Mode: External US (Merna Quiroga RN) FHR Baseline Rate : 145 (Merna Quiroga RN) FHR Baseline Changes: No Baseline Change (Merna Quiroga RN) Variability: Moderate 6-25 bpm (Merna Quiroga RN) Accelerations: 15X15 (Merna Quiroga RN) Decelerations: Variable (Merna Quiroga RN) Antibiotics: Penicillin IV (Units) @ (Annotations: 5 MILLION UNITS IV NOW ) (Merna Quiroga RN)
[2016-09-14] MEDS ORDERED: PENICILLIN G POTASSIUM 2,500,000 UNIT in DEXTROSE 5%-WATER 50 ML IV SCH (10:30)
[2016-09-14] MEDS ORDERED: PENICILLIN G-K 5 MILLION UNIT VIAL IV SCH (10:45)
--- NOTE | 2016-09-14 12:00 | L&D Flow Sheet ---
LD Flowsheet Datetime Report Generated by CPN: 09/14/2016 12:00 Datetime: 09/14/2016 11:43 IV/Blood Work: IV Bolus Started (Merna Farrell, RN) Patient Care Comments: IV FLUSHED WITH 10CC. TUBING REPLACED. (Merna Halsmer, RN) Datetime: 09/14/2016 11:37 NBP Sys/Leanna/Mean (mmHg): 111 (QS system process) : 73 (QS system process) : 86 (QS system process) Pulse: 110 (QS system process) LaborFlag: OB Triage (QS system process) Datetime: 09/14/2016 11:30 Patient Position/Activity: Right Lateral (Merna Halsmer, RN) Datetime: 09/14/2016 11:26 Dilatation (cm): 4.0 (Merna Arizaer, RN) Effacement (%): 70 (Merna Arizaer, RN) Station: -1 (Merna Arizaer, RN) Exam by: Vivi FARRELL RN (Merna Halsmer, RN) Datetime: 09/14/2016 11:24 Pain Scale: 5 (Merna Farrell RN) Pain Presence: Intermittent (Merna Farrell RN) Pain Type: Sharp (Merna Farrell RN) Pain Location: Perineum (Merna Farrell RN) Pain Relief Measures: Comfort Measures (Merna Farrell RN) Pain Coping: Requesting Pain Medication or Epidural (Merna Farrell RN) Comfort Measures: Breathing/Relaxation; Coaching (Merna Farrell RN) LaborFlag: OB Triage (QS system process) Datetime: 09/14/2016 11:15 Monitor Mode: External (Merna Farrell RN) Frequency (min): 2-4 (Merna Farrell RN) Quality: Moderate (Merna Farrell RN) Duration (sec): 50-70 (Merna Farrell RN) Resting Tone (Palpate): Relaxed (Merna Farrell RN) Monitor Mode: External US (Merna Farrell RN) Monitor Interventions for FHR: Ultrasound Adjusted (Merna Farrell RN) FHR Baseline Rate : 150 (Merna Farrell RN) FHR Baseline Changes: No Baseline Change (Merna Farrell RN) Variability: Moderate 6-25 bpm (Merna Farrell RN) Decelerations: None (Merna Farrell RN) Pitocin (milliunit): Pitocin Increased to (milliunits) @ (Annotations: 14) (Merna Farrell RN) Communication: RN at Bedside; RN Reviewed Strip (Merna Halsmer, RN) Datetime: 09/14/2016 11:08 Patient Care Comments: pt sitting in rocking chair (Merna Halsmer, RN) Datetime: 09/14/2016 11:07 I/O Interventions: Up to BR (Merna Halsmer, RN) Datetime: 09/14/2016 11:01 Monitor Interventions for FHR: Ultrasound Adjusted (Merna Halsmer, RN) Comments: MATERNAL HR BEING TRACED. (Merna Halsmer, RN) Datetime: 09/14/2016 11:00 Monitor Mode: External (Merna Halsmer, RN) Frequency (min): 2-5 (Merna Halsmer, RN) Quality: Mild/Moderate (Merna Halsmer, RN) Duration (sec): 50-80 (Merna Halsmer, RN) Resting Tone (Palpate): Relaxed (Merna Halsmer, RN) Monitor Mode: External US (Merna Halsmer, RN) FHR Baseline Rate : 150 (Merna Halsmer, RN) FHR Baseline Changes: No Baseline Change (Merna Halsmer, RN) Variability: Moderate 6-25 bpm (Merna Halsmer, RN) Decelerations: None (Merna Halsmer, RN) Pitocin (milliunit): Pitocin Increased to (milliunits) @ (Annotations: 12) (Merna Halsmer, RN) Datetime: 09/14/2016 10:45 Monitor Mode: External (Merna Halsmer, RN) Frequency (min): 3-5 (Merna Halsmer, RN) Quality: Mild/Moderate (Merna Halsmer, RN) Duration (sec): 40-60 (Merna Farrell RN) Resting Tone (Palpate): Relaxed (Merna Farrell RN) Monitor Mode: External US (Merna Farrell RN) FHR Baseline Rate : 150 (Merna Farrell RN) FHR Baseline Changes: No Baseline Change (Merna Farrell RN) Variability: Moderate 6-25 bpm (Merna Farrell RN) Decelerations: Variable (Merna Farrell RN) Pitocin (milliunit): Pitocin Increased to (milliunits) @ (Annotations: 10) (Merna Farrell RN) Datetime: 09/14/2016 10:38 NBP Sys/Leanna/Mean (mmHg): 100 (QS system process) : 62 (QS system process) : 75 (QS system process) Pulse: 112 (QS system process) Respirations: 16 (Merna Farrell RN) Pain Scale: 3 (Merna Farrell RN) Pain Presence: Intermittent (Merna Farrell RN) Pain Type: Sharp (Merna Farrell RN) Pain Location: Abdomen (Merna Farrell RN) Pain Goal: 2 (Merna Farrell RN) Pain Relief Measures: Comfort Measures (Merna Farrell RN) Pain Coping: Talking Through Contractions (Merna Farrell RN) LaborFlag: OB Triage (QS system process) Datetime: 09/14/2016 10:30 Monitor Mode: External (Merna Halsmer, RN) Frequency (min): 3-4 (Merna Halsmer, RN) Quality: Mild (Merna Halsmer, RN) Duration (sec): 50-80 (Merna Halsmer, RN) Resting Tone (Palpate): Relaxed (Merna Halsmer, RN) Monitor Mode: External US (Merna Halsmer, RN) FHR Baseline Rate : 150 (Merna Halsmer, RN) Variability: Moderate 6-25 bpm (Merna Halsmer, RN) Decelerations: None (Merna Halsmer, RN) Pitocin (milliunit): Pitocin Increased to (milliunits) @ (Annotations: 8) (Merna Halsmer, RN) Datetime: 09/14/2016 10:15 Monitor Mode: External (Merna Halsmer, RN) Frequency (min): 4-7 (Merna Halsmer, RN) Quality: Mild (Merna Halsmer, RN) Duration (sec): 50-80 (Merna Halsmer, RN) Resting Tone (Palpate): Relaxed (Merna Halsmer, RN) Monitor Mode: External US (Merna Halsmer, RN) FHR Baseline Rate : 140 (Merna Halsmer, RN) FHR Baseline Changes: No Baseline Change (Merna Halsmer, RN) Variability: Moderate 6-25 bpm (Merna Halsmer, RN) Accelerations: Prolonged (Merna Halsmer, RN) Decelerations: None (Merna Halsmer, RN) Pitocin (milliunit): Pitocin Remains (milliunits) @ (Annotations: 6) (Merna Halsmer, RN) Datetime: 09/14/2016 10:07 NBP Sys/Leanna/Mean (mmHg): 107 (QS system process) : 68 (QS system process) : 81 (QS system process) Pulse: 105 (QS system process) Respirations: 16 (Merna Haldonnaer, RN) Temperature (F): 97.6 (Merna Halsmer, RN) Temperature (C): 36.4 (QS system process) Temperature Route: Oral (Merna Halsmer, RN) LaborFlag: OB Triage (QS system process) Datetime: 09/14/2016 10:02 Monitor Interventions for FHR: Ultrasound Adjusted (Merna Arizaer, RN) Datetime: 09/14/2016 10:00 Monitor Mode: External (Merna Farrell RN) Frequency (min): 4-5 (Merna Farrell RN) Quality: Mild (Merna Farrell RN) Duration (sec): 50-80 (Merna Farrell RN) Resting Tone (Palpate): Relaxed (Merna Farrell RN) Monitor Mode: External US (Merna Farrell RN) FHR Baseline Rate : 140 (Merna Farrell RN) FHR Baseline Changes: No Baseline Change (Merna Farrell RN) Variability: Moderate 6-25 bpm (Merna Farrell RN) Decelerations: None (Merna Farrell RN) Pitocin (milliunit): Pitocin Increased to (milliunits) @ (Annotations: 6) (Merna Farrell RN)
[2016-09-14] MEDS ORDERED: FENTANYL/BUPIVACAINE/NS/PF 0 MCG/0 ML RTUINJ EPI ONE (12:05)
[2016-09-14] MEDS ORDERED: EPHEDRINE SULFATE INJ 50 MG/1 ML AMPULE ONE (12:05)
[2016-09-14] MEDS ORDERED: BUPIVACAINE HCL 0.25 % INJ/PF (2.5 MG/1 ML) 30 ML VIAL ONE (12:06)
[2016-09-14] MEDS ORDERED: FENTANYL CITRATE INJ/PF 100 MCG/2 ML AMPUL ONE ×2 (12:07→13:36)
[2016-09-14] MEDS ORDERED: MISOPROSTOL 0.2 MG TABLET ONE (13:52)
[2016-09-14] MEDS ORDERED: LIDOCAINE 1% INJ-PF (10 MG/ML) 30 ML SDV ONE (13:52)
--- NOTE | 2016-09-14 14:00 | L&D Flow Sheet ---
LD Flowsheet Datetime Report Generated by CPN: 09/14/2016 14:00 Datetime: 09/14/2016 13:59 Stage of : Recovery (Radha Adeel, RN) Datetime: 09/14/2016 13:41 NBP Sys/Leanna/Mean (mmHg): 154 (QS system process) : 103 (QS system process) : 122 (QS system process) LaborFlag: OB Triage (QS system process) Datetime: 09/14/2016 13:30 NBP Sys/Leanna/Mean (mmHg): 134 (QS system process) : 79 (QS system process) : 99 (QS system process) Pulse: 104 (QS system process) LaborFlag: OB Triage (QS system process) Datetime: 09/14/2016 13:24 NBP Sys/Leanna/Mean (mmHg): 105 (QS system process) : 50 (QS system process) : 73 (QS system process) Pulse: 105 (QS system process) LaborFlag: OB Triage (QS system process) Datetime: 09/14/2016 13:23 NBP Sys/Leanna/Mean (mmHg): 117 (QS system process) : 57 (QS system process) : 82 (QS system process) Pulse: 101 (QS system process) LaborFlag: OB Triage (QS system process) Datetime: 09/14/2016 13:22 NBP Sys/Leanna/Mean (mmHg): 118 (QS system process) : 56 (QS system process) : 81 (QS system process) Pulse: 89 (QS system process) LaborFlag: OB Triage (QS system process) Datetime: 09/14/2016 13:20 NBP Sys/Leanna/Mean (mmHg): 135 (QS system process) : 75 (QS system process) : 97 (QS system process) Pulse: 113 (QS system process) LaborFlag: OB Triage (QS system process) Datetime: 09/14/2016 13:19 NBP Sys/Leanna/Mean (mmHg): 108 (QS system process) : 55 (QS system process) : 76 (QS system process) Pulse: 104 (QS system process) LaborFlag: OB Triage (QS system process) Datetime: 09/14/2016 13:18 NBP Sys/Leanna/Mean (mmHg): 111 (QS system process) : 63 (QS system process) : 82 (QS system process) Pulse: 95 (QS system process) LaborFlag: OB Triage (QS system process) Datetime: 09/14/2016 13:17 NBP Sys/Leanna/Mean (mmHg): 104 (QS system process) : 70 (QS system process) : 83 (QS system process) Pulse: 113 (QS system process) LaborFlag: OB Triage (QS system process) Datetime: 09/14/2016 13:16 NBP Sys/Leanna/Mean (mmHg): 138 (QS system process) : 64 (QS system process) : 92 (QS system process) Pulse: 102 (QS system process) LaborFlag: OB Triage (QS system process) Datetime: 09/14/2016 13:15 NBP Sys/Leanna/Mean (mmHg): 119 (QS system process) : 56 (QS system process) : 81 (QS system process) Pulse: 109 (QS system process) LaborFlag: OB Triage (QS system process) Datetime: 09/14/2016 13:13 NBP Sys/Leanna/Mean (mmHg): 128 (QS system process) : 74 (QS system process) : 93 (QS system process) Pulse: 90 (QS system process) LaborFlag: OB Triage (QS system process) Datetime: 09/14/2016 13:12 NBP Sys/Leanna/Mean (mmHg): 135 (QS system process) : 70 (QS system process) : 96 (QS system process) Pulse: 96 (QS system process) LaborFlag: OB Triage (QS system process) Datetime: 09/14/2016 13:11 NBP Sys/Leanna/Mean (mmHg): 146 (QS system process) : 80 (QS system process) : 107 (QS system process) Pulse: 96 (QS system process) LaborFlag: OB Triage (QS system process) Datetime: 09/14/2016 13:09 NBP Sys/Leanna/Mean (mmHg): 134 (QS system process) : 90 (QS system process) : 106 (QS system process) Pulse: 111 (QS system process) LaborFlag: OB Triage (QS system process) Datetime: 09/14/2016 13:04 NBP Sys/Leanna/Mean (mmHg): 141 (QS system process) : 96 (QS system process) : 114 (QS system process) Pulse: 65 (QS system process) LaborFlag: OB Triage (QS system process) Datetime: 09/14/2016 13:03 NBP Sys/Leanna/Mean (mmHg): 133 (QS system process) : 87 (QS system process) : 103 (QS system process) Pulse: 118 (QS system process) LaborFlag: OB Triage (QS system process) Datetime: 09/14/2016 13:00 NBP Sys/Leanna/Mean (mmHg): 135 (QS system process) : 62 (QS system process) : 95 (QS system process) Pulse: 94 (QS system process) LaborFlag: OB Triage (QS system process) Datetime: 09/14/2016 12:59 NBP Sys/Leanna/Mean (mmHg): 130 (QS system process) : 80 (QS system process) : 100 (QS system process) Pulse: 116 (QS system process) LaborFlag: OB Triage (QS system process) Datetime: 09/14/2016 12:58 NBP Sys/Leanna/Mean (mmHg): 135 (QS system process) : 87 (QS system process) : 106 (QS system process) Pulse: 107 (QS system process) LaborFlag: OB Triage (QS system process) Datetime: 09/14/2016 12:37 NBP Sys/Leanna/Mean (mmHg): 128 (QS system process) : 77 (QS system process) : 96 (QS system process) Pulse: 114 (QS system process) Respirations: 22 (Merna Quiroga RN) Antibiotics: Penicillin IV (Units) @ (Annotations: 2.5 MILLION UNITS IVPB) (Merna Quiroga RN) LaborFlag: OB Triage (QS system process) Datetime: 09/14/2016 12:34 Communication Comments: Dustin DE LA GARZA RN REPORT GIVEN AND CARE RELINQUISHED AT THIS TIME. (Merna Arizaer, RN) Datetime: 09/14/2016 12:30 Monitor Mode: External; Palpation (Merna Quiroga, RN) Frequency (min): 2-3 (Merna Arizaer, RN) Quality: Mild/Moderate (Merna Haldonnaer, RN) Duration (sec): 50-80 (Merna Haldonnaer, RN) Resting Tone (Palpate): Relaxed (Merna Arizaer, RN) Monitor Mode: External US (Merna Arizaer, RN) FHR Baseline Rate : 140 (Merna Haldonnaer, RN) FHR Baseline Changes: No Baseline Change (Merna Halsmer, RN) Variability: Moderate 6-25 bpm (Merna Halsmer, RN) Decelerations: None (Merna Halsmer, RN) Pitocin (milliunit): Pitocin Remains (milliunits) @ (Annotations: 14) (Merna Halsmer, RN) Datetime: 09/14/2016 12:22 Communication Comments: RN AT BEDSIDE REPLACING IV TUBING BECAUSE TUBING ISN'T RUNNING EVEN WITH PRESSURE BAG APPLIED. (Merna Halsmer, RN) Datetime: 09/14/2016 12:15 Monitor Mode: External (Merna Halsmer, RN) Frequency (min): 2-4 (Merna Halsmer, RN) Quality: Mild/Moderate (Merna Halsmer, RN) Duration (sec): 50-80 (Merna Halsmer, RN) Resting Tone (Palpate): Relaxed (Merna Halsmer, RN) Monitor Mode: External US (Merna Halsmer, RN) FHR Baseline Rate : 140 (Merna Halsmer, RN) FHR Baseline Changes: No Baseline Change (Merna Halsmer, RN) Variability: Moderate 6-25 bpm (Merna Halsmer, RN) Decelerations: Variable (Merna Halsmer, RN) Pitocin (milliunit): Pitocin Remains (milliunits) @ (Annotations: 14) (Merna Halsmer, RN) Datetime: 09/14/2016 12:13 Patient Position/Activity: Hands-Knees (Merna Halsmer, RN) Datetime: 09/14/2016 12:07 NBP Sys/Leanna/Mean (mmHg): 130 (QS system process) : 89 (QS system process) : 105 (QS system process) Pulse: 101 (QS system process) Respirations: 20 (Merna Quiroga RN) LaborFlag: OB Triage (QS system process) Datetime: 09/14/2016 12:00 Monitor Mode: External (Merna Quiroga RN) Frequency (min): 2-3 (Merna Quiroga RN) Quality: Mild/Moderate (Merna Quiroga RN) Duration (sec): 40-60 (Merna Quiroga, RN) Resting Tone (Palpate): Relaxed (Merna Quiroga RN) Monitor Mode: External US (Merna Quiroga RN) FHR Baseline Rate : 140 (Merna Quiroga RN) FHR Baseline Changes: No Baseline Change (Merna Quiroga RN) Variability: Minimal - Undetectable to <=5 bpm (Merna Quiroga RN) Decelerations: Variable (Merna Quiroga RN) Pitocin (milliunit): Pitocin Remains (milliunits) @ (Annotations: 14) (Merna Quiroga RN)
[2016-09-14] MEDS ORDERED: ACETAMINOPHEN WITH CODEINE #3 TABLET PO PRN ×2 (14:24)
[2016-09-14] MEDS ORDERED: BENZOCAINE/MENTHOL AEROSOL SPRAY 56 ML TOP PRN (14:24)
[2016-09-14] MEDS ORDERED: DIBUCAINE 1% OINTMENT 28 GM TP PRN (14:24)
[2016-09-14] MEDS ORDERED: ZOLPIDEM TARTRATE 5 MG TABLET PO PRN (14:24)
[2016-09-14] MEDS ORDERED: MEASLES,MUMPS&RUBELLA VACC/PF 0.5 ML VIAL SUBCUT PRN (14:24)
[2016-09-14] MEDS ORDERED: DIPH/PERTUSS(ACELL)/TETANUS VAC/PF 0.5 ML SYR (>=10YO) IM PRN (14:24)
[2016-09-14] MEDS ORDERED: OXYTOCIN/NORMAL SALINE 1,000 ML IV PRN (14:24)
[2016-09-14] MEDS ORDERED: IBUPROFEN 800 MG TABLET ONE (16:01)
[2016-09-14] MEDS: IBUPROFEN 800 MG TABLET PO SCH (16:02)
--- NOTE | 2016-09-14 18:29 | Admission Physical ---
Datetime Report Generated by CPN: 09/14/2016 18:29 CURRENT ADMISSION Hx Assessment: The History has been Reviewed and is Current Chief Complaint: Suspected Ruptured Membranes Indication for Induction: PROM Admit Plan: Admit to Unit; Initiate Labor Induction Protocol ALLERGIES Medication Allergies: No Medication Allergies: No Known Allergies (09/14/2016) Latex: No Latex Allergies Food Allergies: denies Environmental Allergies: denies OBSTETRICAL HISTORY EDC: 10/05/2016 00:00 : 2 Para: 1 : 1 Livin Gestational Diabetes: No Rh Sensitization: No Incompetent Cervix: No DIDI: No Infertility: No ART Treatment: No Uterine Anomaly: No IUGR: No Hx Previous C/S: No Macrosomia: No Hx Loss/Stillborn: No PIH: No Hx : No Placenta Previa/Abruption: No Depression/PP Depression: No PTL/PROM: Yes Post Hemorrhage: No Current Procedures: Ultrasound; NST Obstetrical History Comments: G1: 34 weeks 4 lbs epidural G2: current , absent nasal bone per [facility] U/S SEE RECORDS Alcohol: No Marijuana : No Cocaine: No Other Illicit Drugs: No Cigarettes: Never Smoker. 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: No Heart Disease: No Hosp/Surgery: Yes Autoimmune Disorder: No Anesthetic Complications: No Kidney Disease: No Abnormal Pap Smear: No Neuro/Epilepsy: No Psychiatric Disorders: No Other Medical Diseases: No Hepatitis/Liver Disease: No Significant Family History: No Varicosities/Phlebitis: No Trauma/Violence : No Thyroid Dysfunction: No Medical History Comments: x 1 INFECTIOUS HISTORY Gonorrhea: No Genital Herpes: No Chlamydia: No Tuberculosis: No Syphilis: No Hepatitis: No HIV/AIDS Exposure: No Rash or Viral Illness: No HPV: No PHYSICAL EXAM General: Normal HEENT: Normal Neurologic: Normal Thyroid: Normal Heart: Normal Lungs: Normal Breast: Deferred Back: Normal Abdomen: Normal Genitourinary Exam: Normal Extremities: Normal DTRs: Normal Pelvic Type: Adequate Physical Exam Comments: cervix per RN exam on admission Vital Signs: Reviewed; Within Normal Limits VAGINAL EXAM Dilatation: 2 Effacement: 50 Station: -3 Contraction Comments: irreg MEMBRANES Membranes: Ruptured FETUS A EGA: 37.0 Monitoring: External US Decelerations: None FHR Category: Category I Presentation: Vertex Admit Comment: 25yo @37wga into L_D with SROM @ 0500. Pt. with limited and late entry to care (5 visits with first at 24w but had a 12w6d dating u/s with [facility] 10/05/16). Hx of PPROM and delivery at 34w in 2014. This significant for missing nasal bone on fetus. Pt. is [place], [place], GBS positive in urine (declined treatment at [facility]) had first dose of PCN this am. Desires BTL. Missed window for quad screen but had informa done at [facility] neg results per pt. Last u/s on 09/04 with EFW @ 15%ile, AC <5%ile. Denies any other hx. Started on GBS protocol and pitocin for augment. Denies pain at this time. Planning on epidural for pain control. PLANS FOR LABOR AND DELIVERY Labor and Delivery: None Pain Management: Medications; Epidural Feeding Preference: Both Benefit of Breast Feed Discussed: Yes Circumcision: Yes INFORMED CONSENT Assignment: Vanessa Sanchez MD Signature: with User ID: [email or web address] : with User ID: [email or web address]
[2016-09-14] MEDS: FERROUS SULFATE 325 MG TABLET PO SCH (18:57)
[2016-09-14] MEDS: DOCUSATE SODIUM 100 MG CAPSULE PO SCH (18:57)
--- NOTE | 2016-09-14 19:00 | L&D Flow Sheet ---
LD Flowsheet Datetime Report Generated by CPN: 09/14/2016 19:00 Datetime: 09/14/2016 16:10 NBP Sys/Leanna/Mean (mmHg): 123 (QS system process) : 68 (QS system process) : 88 (QS system process) Pulse: 90 (QS system process) Respirations: 16 (Pia Bellavance, RNC) Datetime: 09/14/2016 15:55 NBP Sys/Leanna/Mean (mmHg): 126 (QS system process) : 70 (QS system process) : 91 (QS system process) Pulse: 111 (QS system process) Respirations: 16 (Pia Guerrero, RNC) Datetime: 09/14/2016 15:40 NBP Sys/Leanna/Mean (mmHg): 129 (QS system process) : 69 (QS system process) : 91 (QS system process) Pulse: 112 (QS system process) Respirations: 16 (Laina Tineo, RN) Datetime: 09/14/2016 15:25 NBP Sys/Leanna/Mean (mmHg): 122 (QS system process) : 74 (QS system process) : 95 (QS system process) Pulse: 93 (QS system process) Respirations: 16 (Laina Tineo, RN) Datetime: 09/14/2016 15:10 NBP Sys/Leanna/Mean (mmHg): 131 (QS system process) : 67 (QS system process) : 87 (QS system process) Pulse: 97 (QS system process) Datetime: 09/14/2016 14:55 NBP Sys/Leanna/Mean (mmHg): 124 (QS system process) : 72 (QS system process) : 93 (QS system process) Pulse: 93 (QS system process) Respirations: 18 (Pia Bellavance, RNC) Datetime: 09/14/2016 14:40 NBP Sys/Leanna/Mean (mmHg): 129 (QS system process) : 74 (QS system process) : 96 (QS system process) Pulse: 92 (QS system process) Respirations: 18 (Pia Bellavance, RNC) Datetime: 09/14/2016 14:25 NBP Sys/Leanna/Mean (mmHg): 126 (QS system process) : 73 (QS system process) : 94 (QS system process) Pulse: 98 (QS system process) Respirations: 18 (Pia Bellavance, RNC) Datetime: 09/14/2016 14:14 NBP Sys/Leanna/Mean (mmHg): 126 (QS system process) : 71 (QS system process) : 93 (QS system process) Pulse: 102 (QS system process) Datetime: 09/14/2016 14:10 NBP Sys/Leanna/Mean (mmHg): 124 (QS system process) : 68 (QS system process) : 89 (QS system process) Pulse: 109 (QS system process) Respirations: 18 (Pia Bellavance, RNC) Pain Scale: 1 (Pia Bellavance, RNC) Pain Assessment Comments: patient resting with eyes closed (Pia Bellavance, RNC) Datetime: 09/14/2016 13:59 Stage of : Recovery (Radha Adeel, RN) Datetime: 09/14/2016 13:58 Stage 2 Comments: of viable male (Pia Bellavance, RNC) Datetime: 09/14/2016 13:54 Comments: utd baseline (Pia Bellavance, RNC) Datetime: 09/14/2016 13:50 Monitor Mode: Internal Scalp Electrode (Pia Bellavance, RNC) FHR Baseline Rate : 110 (Pia Bellavance, RNC) Variability: Moderate 6-25 bpm (Pia Bellavance, RNC) Accelerations: None (Pia Bellavance, RNC) Decelerations: None (Pia Bellavance, RNC) Comments: difficult to assess baseline (Pia Bellavance, RNC) Datetime: 09/14/2016 13:45 Monitor Mode: Internal Scalp Electrode (Pia Bellavance, RNC) FHR Baseline Rate : 145 (Pia Bellavance, RNC) Variability: Marked >25 bpm (Pia Bellavance, RNC) Accelerations: 15X15 (Pia Bellavance, RNC) Decelerations: Variable (Pia Bellavance, RNC) Datetime: 09/14/2016 13:44 Monitor Mode: External (Pia Bellavance, RNC) Frequency (min): 2-3 (Pia Bellavance, RNC) Quality: Moderate to Strong (Pia Bellavance, RNC) Duration (sec): 50-60 (Pia Bellavance, RNC) Resting Tone (Palpate): Relaxed (Pia Bellavance, RNC) Monitor Mode: Internal Scalp Electrode (Pia Bellavance, RNC) FHR Baseline Rate : 140 (Pia Bellavance, RNC) Variability: Marked >25 bpm (Pia Bellavance, RNC) Accelerations: 15X15 (Pia Bellavance, RNC) Decelerations: Variable (Pia Bellavance, RNC) Pain Presence: Intermittent (Pia Bellavance, RNC) Pain Type: Pressure (Pia Bellavance, RNC) Pain Location: Perineum (Pia Bellavance, RNC) Pain Relief Measures: Comfort Measures (Pia Bellavance, RNC) Pain Assessment Comments: patient states that she glass urge to push (Pia Bellavance, RNC) Dilatation (cm): 10.0 (Pia Bellavance, RNC) Effacement (%): 100 (Pia Bellavance, RNC) Station: 2 (Pia Bellavance, RNC) Exam by: Dilcia Guerrero RNC (Pia Guerrero RNC) IV/Blood Work: IV Infusing per Order (Pia Guerrero RNC) Oxygen Method: Room Air (Pia Guerrero RNC) Comfort Measures: Family Support (Pia Guerrero RNC) Instructional Method: Verbal (Pia Guerrero RNC) Plan of Care: Vaginal Delivery (Pia Guerrero RNC) Labor/Induction: Pushing Methods (Pia Guerrero RNC) Pushing: Coached on Pushing; Urge to Push (Pia Guerrero RNC) Pushing Position: Pushing with Contractions (Pia Guerrero RNC) Pushing Progress: Descent with Pushing (Pia Guerrero RNC) LaborFlag: OB Triage (QS system process) Datetime: 09/14/2016 13:41 NBP Sys/Leanna/Mean (mmHg): 154 (QS system process) : 103 (QS system process) : 122 (QS system process) LaborFlag: OB Triage (QS system process) Datetime: 09/14/2016 13:30 NBP Sys/Leanna/Mean (mmHg): 134 (QS system process) : 79 (QS system process) : 99 (QS system process) Pulse: 104 (QS system process) LaborFlag: OB Triage (QS system process) Datetime: 09/14/2016 13:29 Monitor Mode: External (Pia Bellavance, RNC) Frequency (min): 2-3 (Pia Bellavance, RNC) Quality: Moderate (Pia Bellavance, RNC) Duration (sec): 50-70 (Pia Bellavance, RNC) Resting Tone (Palpate): Relaxed (Pia Bellavance, RNC) Monitor Mode: External US; Internal Scalp Electrode (Pia Bellavance, RNC) FHR Baseline Rate : 135 (Pia Bellavance, RNC) Variability: Moderate 6-25 bpm (Pia Bellavance, RNC) Accelerations: 15X15 (Pia Bellavance, RNC) Decelerations: Early; Variable (Pia Bellavance, RNC) IV/Blood Work: IV Infusing per Order (Pia Bellavance, RNC) Patient Position/Activity: Left Tilt (Pia Bellavance, RNC) Datetime: 09/14/2016 13:24 NBP Sys/Leanna/Mean (mmHg): 105 (QS system process) : 50 (QS system process) : 73 (QS system process) Pulse: 105 (QS system process) Monitor Interventions for FHR: FSE Applied (Pia Bellavance, RNC) Dilatation (cm): 5.0 (Pia Bellavance, RNC) Effacement (%): 100 (Pia Bellavance, RNC) Station: 0 (Pia Bellavance, RNC) Exam by: Dr Sanchez (Pia Bellavance, RNC) Vaginal Bleeding: None (Pia Bellavance, RNC) Cervix, Consistency: Soft (Pia Bellavance, RNC) Cervix, Position: Midposition (Pia Bellavance, RNC) Lie 'A': Longitudinal (Pia Bellavance, RNC) Vaginal Exam Comments: fse placed (Pia Bellavance, RNC) LaborFlag: OB Triage (QS system process) Datetime: 09/14/2016 13:23 NBP Sys/Leanna/Mean (mmHg): 117 (QS system process) : 57 (QS system process) : 82 (QS system process) Pulse: 101 (QS system process) LaborFlag: OB Triage (QS system process) Datetime: 09/14/2016 13:22 NBP Sys/Leanna/Mean (mmHg): 118 (QS system process) : 56 (QS system process) : 81 (QS system process) Pulse: 89 (QS system process) LaborFlag: OB Triage (QS system process) Datetime: 09/14/2016 13:20 NBP Sys/Leanna/Mean (mmHg): 135 (QS system process) : 75 (QS system process) : 97 (QS system process) Pulse: 113 (QS system process) LaborFlag: OB Triage (QS system process) Datetime: 09/14/2016 13:19 NBP Sys/Leanna/Mean (mmHg): 108 (QS system process) : 55 (QS system process) : 76 (QS system process) Pulse: 104 (QS system process) LaborFlag: OB Triage (QS system process) Datetime: 09/14/2016 13:18 NBP Sys/Leanna/Mean (mmHg): 111 (QS system process) : 63 (QS system process) : 82 (QS system process) Pulse: 95 (QS system process) LaborFlag: OB Triage (QS system process) Datetime: 09/14/2016 13:17 NBP Sys/Leanna/Mean (mmHg): 104 (QS system process) : 70 (QS system process) : 83 (QS system process) Pulse: 113 (QS system process) LaborFlag: OB Triage (QS system process) Datetime: 09/14/2016 13:16 NBP Sys/Leanna/Mean (mmHg): 138 (QS system process) : 64 (QS system process) : 92 (QS system process) Pulse: 102 (QS system process) LaborFlag: OB Triage (QS system process) Datetime: 09/14/2016 13:15 NBP Sys/Leanna/Mean (mmHg): 119 (QS system process) : 56 (QS system process) : 81 (QS system process) Pulse: 109 (QS system process) LaborFlag: OB Triage (QS system process) Datetime: 09/14/2016 13:14 Monitor Mode: External (Pia Bellavance, RNC) Frequency (min): 1-3 (Pia Bellavance, RNC) Quality: Moderate (Pia Bellavance, RNC) Duration (sec): 40-70 (Pia Bellavance, RNC) Resting Tone (Palpate): Relaxed (Pia Bellavance, RNC) Monitor Mode: External US (Pia Philipnce, RNC) FHR Baseline Rate : 140 (Pia Bellavance, RNC) FHR Baseline Changes: No Baseline Change (Pia Bellavance, RNC) Variability: Moderate 6-25 bpm (Pia Bellavance, RNC) Accelerations: 15X15 (Pia Bellavance, RNC) Decelerations: None (Pia Bellavance, RNC) Pain Scale: 5 (Pia Philipnce, RNC) Pain Presence: Intermittent (Pia Philipnce, RNC) Pain Type: Cramping; Contraction (Pia Cedricknce, RNC) Pain Location: Abdomen (Pia Cevallose, RNC) Pain Goal: 1 (Pia Cevallose, RNC) Pain Relief Measures: Pain Medication Given (Pia Cevallose, RNC) Pain Coping: Requesting Pain Medication or Epidural (Pia Cevallose, RNC) Pain Assessment Comments: desires pain medication Fentanyl given (Pia Cevallose, RNC) Analgesics/Sedatives: Fentanyl (mcg) @ 100 (Pia Cevallose, RNC) IV/Blood Work: IV Infusing per Order (Pia Guerrero, RNC) Patient Position/Activity: Right Tilt (Pia Cevallose, RNC) Comfort Measures: Breathing/Relaxation (Pia Philipnce, RNC) LaborFlag: OB Triage (QS system process) Datetime: 09/14/2016 13:13 NBP Sys/Leanna/Mean (mmHg): 128 (QS system process) : 74 (QS system process) : 93 (QS system process) Pulse: 90 (QS system process) LaborFlag: OB Triage (QS system process) Datetime: 09/14/2016 13:12 NBP Sys/Leanna/Mean (mmHg): 135 (QS system process) : 70 (QS system process) : 96 (QS system process) Pulse: 96 (QS system process) LaborFlag: OB Triage (QS system process) Datetime: 09/14/2016 13:11 NBP Sys/Leanna/Mean (mmHg): 146 (QS system process) : 80 (QS system process) : 107 (QS system process) Pulse: 96 (QS system process) LaborFlag: OB Triage (QS system process) Datetime: 09/14/2016 13:09 NBP Sys/Leanna/Mean (mmHg): 134 (QS system process) : 90 (QS system process) : 106 (QS system process) Pulse: 111 (QS system process) LaborFlag: OB Triage (QS system process) Datetime: 09/14/2016 13:08 Pain Assessment Comments: lying down and monitors adjusted Dr [place] unable tp place epidural (Pia Bellavance, RNC) LaborFlag: OB Triage (QS system process) Datetime: 09/14/2016 13:04 NBP Sys/Leanna/Mean (mmHg): 141 (QS system process) : 96 (QS system process) : 114 (QS system process) Pulse: 65 (QS system process) LaborFlag: OB Triage (QS system process) Datetime: 09/14/2016 13:03 NBP Sys/Leanna/Mean (mmHg): 133 (QS system process) : 87 (QS system process) : 103 (QS system process) Pulse: 118 (QS system process) LaborFlag: OB Triage (QS system process) Datetime: 09/14/2016 13:00 NBP Sys/Leanna/Mean (mmHg): 135 (QS system process) : 62 (QS system process) : 95 (QS system process) Pulse: 94 (QS system process) LaborFlag: OB Triage (QS system process) Datetime: 09/14/2016 12:59 NBP Sys/Leanna/Mean (mmHg): 130 (QS system process) : 80 (QS system process) : 100 (QS system process) Pulse: 116 (QS system process) Monitor Mode: External (Pia Bellavance, RNC) Frequency (min): 4-5 (Pia Bellavance, RNC) Quality: Moderate (Pia Bellavance, RNC) Duration (sec): 60-80 (Pia Bellavance, RNC) Duration Criteria: Less than Two 120 Second Contractions (Pia Bellavance, RNC) Pattern: Normal: <= 5 Contractions in 10 Minutes (Pia Bellavance, RNC) Resting Tone (Palpate): Relaxed (Pia Bellavance, RNC) Monitor Mode: External US (Pia Bellavance, RNC) FHR Baseline Rate : 130 (Pia Bellavance, RNC) Variability: Moderate 6-25 bpm (Pia Bellavance, RNC) Accelerations: 15X15 (Pia Bellavance, RNC) Decelerations: Early; Variable (Pia Bellavance, RNC) Pain Scale: 5 (Pia Bellavance, RNC) Pain Presence: Intermittent (Pia Bellavance, RNC) Pain Type: Contraction (Pia Bellavance, RNC) Pain Location: Abdomen (Pia Bellavance, RNC) Pain Goal: 1 (Pia Bellavance, RNC) Pain Relief Measures: Comfort Measures (Pia Bellavance, RNC) Pain Coping: Crying; Writhing (Pia Bellavance, RNC) Pain Assessment Comments: attempting epidural placement Patient unable to tolerate procedure (Pia Guerrero, RNC) IV/Blood Work: IV Bolus Started; IV Infusing per Order (Pia Cevallose, RNC) Patient Position/Activity: Right Lateral (Pia Cevallose, RNC) Comfort Measures: Breathing/Relaxation; Coaching (Pia Guerrero, RNC) LaborFlag: OB Triage (QS system process) Datetime: 09/14/2016 12:58 NBP Sys/Leanna/Mean (mmHg): 135 (QS system process) : 87 (QS system process) : 106 (QS system process) Pulse: 107 (QS system process) Pain Assessment Comments: sitting for epidural (Pia Bellavance, RNC) LaborFlag: OB Triage (QS system process) Datetime: 09/14/2016 12:45 Monitor Mode: External; Palpation (Pia Bellavance, RNC) Frequency (min): 2-3 (Pia Bellavance, RNC) Quality: Mild/Moderate (Pia Bellavance, RNC) Duration (sec): 50-80 (Pia Bellavance, RNC) Resting Tone (Palpate): Relaxed (Pia Bellavance, RNC) Monitor Mode: External US (Pia Bellavance, RNC) FHR Baseline Rate : 140 (Pia Bellavance, RNC) FHR Baseline Changes: No Baseline Change (Pia Bellavance, RNC) Variability: Moderate 6-25 bpm (Pia Bellavance, RNC) Decelerations: Variable (Pia Bellavance, RNC) Pitocin (milliunit): Pitocin Remains (milliunits) @ (Pia Bellavance, RNC) Datetime: 09/14/2016 12:37 NBP Sys/Leanna/Mean (mmHg): 128 (QS system process) : 77 (QS system process) : 96 (QS system process) Pulse: 114 (QS system process) Respirations: 22 (Merna Farrell RN) Antibiotics: Penicillin IV (Units) @ (Annotations: 2.5 MILLION UNITS IVPB) (Merna Farrell RN) LaborFlag: OB Triage (QS system process) Datetime: 09/14/2016 12:34 Communication Comments: Dustin DE LA GARZA RN REPORT GIVEN AND CARE RELINQUISHED AT THIS TIME. (Merna Farrell RN) Datetime: 09/14/2016 12:30 Monitor Mode: External; Palpation (Merna Halsmer, RN) Frequency (min): 2-3 (Merna Halsmer, RN) Quality: Mild/Moderate (Merna Halsmer, RN) Duration (sec): 50-80 (Merna Halsmer, RN) Resting Tone (Palpate): Relaxed (Merna Halsmer, RN) Monitor Mode: External US (Merna Halsmer, RN) FHR Baseline Rate : 140 (Merna Halsmer, RN) FHR Baseline Changes: No Baseline Change (Merna Halsmer, RN) Variability: Moderate 6-25 bpm (Merna Halsmer, RN) Decelerations: None (Merna Halsmer, RN) Pitocin (milliunit): Pitocin Remains (milliunits) @ (Annotations: 14) (Merna Halsmer, RN) Datetime: 09/14/2016 12:22 Communication Comments: RN AT BEDSIDE REPLACING IV TUBING BECAUSE TUBING ISN'T RUNNING EVEN WITH PRESSURE BAG APPLIED. (Merna Halsmer, RN) Datetime: 09/14/2016 12:15 Monitor Mode: External (Merna Halsmer, RN) Frequency (min): 2-4 (Merna Halsmer, RN) Quality: Mild/Moderate (Merna Halsmer, RN) Duration (sec): 50-80 (Merna Halsmer, RN) Resting Tone (Palpate): Relaxed (Merna Halsmer, RN) Monitor Mode: External US (Merna Halsmer, RN) FHR Baseline Rate : 140 (Merna Halsmer, RN) FHR Baseline Changes: No Baseline Change (Merna Halsmer, RN) Variability: Moderate 6-25 bpm (Merna Halsmer, RN) Decelerations: Variable (Merna Halsmer, RN) Pitocin (milliunit): Pitocin Remains (milliunits) @ (Annotations: 14) (Merna Halsmer, RN) Datetime: 09/14/2016 12:13 Patient Position/Activity: Hands-Knees (Merna Halsmer, RN) Datetime: 09/14/2016 12:07 NBP Sys/Leanna/Mean (mmHg): 130 (QS system process) : 89 (QS system process) : 105 (QS system process) Pulse: 101 (QS system process) Respirations: 20 (Merna Farrell RN) LaborFlag: OB Triage (QS system process) Datetime: 09/14/2016 12:00 Monitor Mode: External (Merna Farrell RN) Frequency (min): 2-3 (Merna Farrell RN) Quality: Mild/Moderate (Merna Farrell RN) Duration (sec): 40-60 (Merna Farrell RN) Resting Tone (Palpate): Relaxed (Merna Farrell RN) Monitor Mode: External US (Merna Farrell RN) FHR Baseline Rate : 140 (Merna Farrell RN) FHR Baseline Changes: No Baseline Change (Merna Farrell RN) Variability: Minimal - Undetectable to <=5 bpm (Merna Farrell RN) Decelerations: Variable (Merna Farrell RN) Pitocin (milliunit): Pitocin Remains (milliunits) @ (Annotations: 14) (Merna Farrell RN) Datetime: 09/14/2016 11:45 Monitor Mode: External (Merna Farrell, ASHLEY) Frequency (min): 2-4 (Merna Farrell, ASHLEY) Quality: Mild/Moderate (Merna Farrell, ASHLEY) Duration (sec): 50-80 (Merna Farrell RN) Resting Tone (Palpate): Relaxed (Merna Farrell, ASHLEY) Monitor Mode: External US (Merna Farrell RN) Monitor Interventions for FHR: Ultrasound Adjusted (Merna Farrell RN) FHR Baseline Rate : 150 (Merna Farrell RN) FHR Baseline Changes: No Baseline Change (Merna Farrell, ASHLEY) Variability: Moderate 6-25 bpm (Merna Farrell, RN) Accelerations: 15X15 (Meran Farrell, RN) Decelerations: Variable (Merna Farrell, ASHLEY) Pitocin (milliunit): Pitocin Remains (milliunits) @ (Annotations: 14) (Merna Farrell, ASHLEY) Datetime: 09/14/2016 11:43 IV/Blood Work: IV Bolus Started (Merna Farrell RN) Patient Care Comments: IV FLUSHED WITH 10CC. TUBING REPLACED. (Merna Farrell RN) Datetime: 09/14/2016 11:37 NBP Sys/Leanna/Mean (mmHg): 111 (QS system process) : 73 (QS system process) : 86 (QS system process) Pulse: 110 (QS system process) Respirations: 20 (Merna Farrell RN) LaborFlag: OB Triage (QS system process) Datetime: 09/14/2016 11:30 Monitor Mode: External (Merna Farrell RN) Frequency (min): 2-4 (Merna Farrell RN) Quality: Mild/Moderate (Merna Farrell RN) Duration (sec): 40-60 (Merna Farrell RN) Resting Tone (Palpate): Relaxed (Merna Farrell RN) Monitor Mode: External US (Merna Farrell RN) FHR Baseline Rate : 150 (Merna Farrell RN) FHR Baseline Changes: No Baseline Change (Merna Farrell RN) Variability: Moderate 6-25 bpm (Merna Farrell RN) Decelerations: Variable (Merna Farrell RN) Pitocin (milliunit): Pitocin Remains (milliunits) @ (Annotations: 14) (Merna Farrell RN) Patient Position/Activity: Right Lateral (Merna Farrell RN) Datetime: 09/14/2016 11:26 Dilatation (cm): 4.0 (Merna Farrell RN) Effacement (%): 70 (Merna Farrell RN) Station: -1 (Merna Farrell RN) Exam by: Vivi FARRELL RN (Merna Farrell RN) Datetime: 09/14/2016 11:24 Pain Scale: 5 (Merna Farrell RN) Pain Presence: Intermittent (Merna Farrell RN) Pain Type: Sharp (Merna Farrell RN) Pain Location: Perineum (Merna Farrell RN) Pain Relief Measures: Comfort Measures (Merna Farrell RN) Pain Coping: Requesting Pain Medication or Epidural (Merna Farrell RN) Comfort Measures: Breathing/Relaxation; Coaching (Merna Farrell RN) LaborFlag: OB Triage (QS system process) Datetime: 09/14/2016 11:15 Monitor Mode: External (Merna Farrell RN) Frequency (min): 2-4 (Merna Farrell RN) Quality: Moderate (Merna Farrell RN) Duration (sec): 50-70 (Merna Farrell RN) Resting Tone (Palpate): Relaxed (Merna Farrell RN) Monitor Mode: External US (Merna Farrell RN) Monitor Interventions for FHR: Ultrasound Adjusted (Merna Farrell RN) FHR Baseline Rate : 150 (Merna Farrell RN) FHR Baseline Changes: No Baseline Change (Merna Farrell RN) Variability: Moderate 6-25 bpm (Merna Farrell RN) Decelerations: None (Merna Farrell RN) Pitocin (milliunit): Pitocin Increased to (milliunits) @ (Annotations: 14) (Merna Farrell RN) Communication: RN at Bedside; RN Reviewed Strip (Merna Farrell RN) Datetime: 09/14/2016 11:08 Patient Care Comments: pt sitting in rocking chair (Merna Halsmer, RN) Datetime: 09/14/2016 11:07 I/O Interventions: Up to BR (Merna Halsmer, RN) Datetime: 09/14/2016 11:01 Monitor Interventions for FHR: Ultrasound Adjusted (Merna Halsmer, RN) Comments: MATERNAL HR BEING TRACED. (Merna Halsmer, RN) Datetime: 09/14/2016 11:00 Monitor Mode: External (Merna Halsmer, RN) Frequency (min): 2-5 (Merna Halsmer, RN) Quality: Mild/Moderate (Merna Halsmer, RN) Duration (sec): 50-80 (Merna Halsmer, RN) Resting Tone (Palpate): Relaxed (Merna Halsmer, RN) Monitor Mode: External US (Merna Halsmer, RN) FHR Baseline Rate : 150 (Merna Halsmer, RN) FHR Baseline Changes: No Baseline Change (Merna Halsmer, RN) Variability: Moderate 6-25 bpm (Merna Halsmer, RN) Decelerations: None (Merna Halsmer, RN) Pitocin (milliunit): Pitocin Increased to (milliunits) @ (Annotations: 12) (Merna Halsmer, RN) Datetime: 09/14/2016 10:45 Monitor Mode: External (Merna Halsmer, RN) Frequency (min): 3-5 (Merna Halsmer, RN) Quality: Mild/Moderate (Merna Halsmer, RN) Duration (sec): 40-60 (Merna Halsmer, RN) Resting Tone (Palpate): Relaxed (Merna Halsmer, RN) Monitor Mode: External US (Merna Halsmer, RN) FHR Baseline Rate : 150 (Merna Halsmer, RN) FHR Baseline Changes: No Baseline Change (Merna Halsmer, RN) Variability: Moderate 6-25 bpm (Merna Halsmer, RN) Decelerations: Variable (Merna Halsmer, RN) Pitocin (milliunit): Pitocin Increased to (milliunits) @ (Annotations: 10) (Merna Farrell RN) Datetime: 09/14/2016 10:38 NBP Sys/Leanna/Mean (mmHg): 100 (QS system process) : 62 (QS system process) : 75 (QS system process) Pulse: 112 (QS system process) Respirations: 16 (Merna Farrell RN) Pain Scale: 3 (Merna Farrell RN) Pain Presence: Intermittent (Merna Farrell RN) Pain Type: Sharp (Merna Farrell RN) Pain Location: Abdomen (Merna Farrell RN) Pain Goal: 2 (Merna Farrell RN) Pain Relief Measures: Comfort Measures (Merna Farrell RN) Pain Coping: Talking Through Contractions (Merna Farrell RN) LaborFlag: OB Triage (QS system process) Datetime: 09/14/2016 10:30 Monitor Mode: External (Merna Farrell RN) Frequency (min): 3-4 (Merna Halsmer, RN) Quality: Mild (Merna Halsmer, RN) Duration (sec): 50-80 (Merna Halsmer, RN) Resting Tone (Palpate): Relaxed (Merna Halsmer, RN) Monitor Mode: External US (Merna Halsmer, RN) FHR Baseline Rate : 150 (Merna Halsmer, RN) Variability: Moderate 6-25 bpm (Merna Halsmer, RN) Decelerations: None (Merna Halsmer, RN) Pitocin (milliunit): Pitocin Increased to (milliunits) @ (Annotations: 8) (Merna Halsmer, RN) Datetime: 09/14/2016 10:15 Monitor Mode: External (Merna Halsmer, RN) Frequency (min): 4-7 (Merna Halsmer, RN) Quality: Mild (Merna Halsmer, RN) Duration (sec): 50-80 (Merna Halsmer, RN) Resting Tone (Palpate): Relaxed (Merna Halsmer, RN) Monitor Mode: External US (Merna Halsmer, RN) FHR Baseline Rate : 140 (Merna Halsmer, RN) FHR Baseline Changes: No Baseline Change (Merna Halsmer, RN) Variability: Moderate 6-25 bpm (Merna Halsmer, RN) Accelerations: Prolonged (Merna Halsmer, RN) Decelerations: None (Merna Halsmer, RN) Pitocin (milliunit): Pitocin Remains (milliunits) @ (Annotations: 6) (Merna Halsmer, RN) Datetime: 09/14/2016 10:07 NBP Sys/Leanna/Mean (mmHg): 107 (QS system process) : 68 (QS system process) : 81 (QS system process) Pulse: 105 (QS system process) Respirations: 16 (Merna Arizaer, RN) Temperature (F): 97.6 (Merna Haldonnaer, RN) Temperature (C): 36.4 (QS system process) Temperature Route: Oral (Merna Farrell, RN) LaborFlag: OB Triage (QS system process) Datetime: 09/14/2016 10:02 Monitor Interventions for FHR: Ultrasound Adjusted (Merna Halsmer, RN) Datetime: 09/14/2016 10:00 Monitor Mode: External (Merna Halsmer, RN) Frequency (min): 4-5 (Merna Halsmer, RN) Quality: Mild (Merna Halsmer, RN) Duration (sec): 50-80 (Merna Halsmer, RN) Resting Tone (Palpate): Relaxed (Merna Halsmer, RN) Monitor Mode: External US (Merna Halsmer, RN) FHR Baseline Rate : 140 (Merna Halsmer, RN) FHR Baseline Changes: No Baseline Change (Merna Halsmer, RN) Variability: Moderate 6-25 bpm (Merna Halsmer, RN) Decelerations: None (Merna Halsmer, RN) Pitocin (milliunit): Pitocin Increased to (milliunits) @ (Annotations: 6) (Merna Halsmer, RN) Datetime: 09/14/2016 09:45 Monitor Mode: External (Merna Halsmer, RN) Frequency (min): 3-8 (Merna Halsmer, RN) Quality: Mild (Merna Halsmer, RN) Duration (sec): 50-80 (Merna Halsmer, RN) Resting Tone (Palpate): Relaxed (Merna Halsmer, RN) Monitor Mode: External US (Merna Halsmer, RN) FHR Baseline Rate : 140 (Merna Halsmer, RN) FHR Baseline Changes: No Baseline Change (Merna Halsmer, RN) Variability: Minimal - Undetectable to <=5 bpm (Merna Halsmer, RN) Decelerations: None (Merna Farrell RN) Pitocin (milliunit): Pitocin Increased to (milliunits) @ (Annotations: 4) (Merna Farrell RN) Datetime: 09/14/2016 09:38 NBP Sys/Leanna/Mean (mmHg): 136 (QS system process) : 61 (QS system process) : 82 (QS system process) Pulse: 109 (QS system process) Respirations: 16 (Merna Farrell RN) LaborFlag: OB Triage (QS system process) Datetime: 09/14/2016 09:30 Monitor Mode: External (Merna Farrell RN) Frequency (min): 3-5 (Merna Farrell RN) Quality: Mild (Merna Farrell RN) Duration (sec): 40-60 (Merna Farrell RN) Resting Tone (Palpate): Relaxed (Merna Farrell RN) Monitor Mode: External US (Merna Farrell RN) FHR Baseline Rate : 140 (Merna Halsmer, RN) FHR Baseline Changes: No Baseline Change (Merna Halsmer, RN) Variability: Minimal - Undetectable to <=5 bpm (Merna Halsmer, RN) Decelerations: None (Merna Halsmer, RN) Datetime: 09/14/2016 09:25 Pitocin (milliunit): Pitocin Started (milliunits) @ 2; Pitocin 20 Units in 1000ml NS (Merna Halsmer, RN) Datetime: 09/14/2016 09:14 I/O Interventions: Up to BR (Merna Halsmer, RN) Datetime: 09/14/2016 09:00 Monitor Mode: External (Merna Halsmer, RN) Frequency (min): OCC (Merna Halsmer, RN) Quality: Mild (Merna Halsmer, RN) Duration (sec): 50-80 (Merna Halsmer, RN) Resting Tone (Palpate): Relaxed (Merna Halsmer, RN) Monitor Mode: External US (Merna Halsmer, RN) FHR Baseline Rate : 150 (Merna Halsmer, RN) FHR Baseline Changes: No Baseline Change (Merna Halsmer, RN) Variability: Moderate 6-25 bpm (Merna Halsmer, RN) Accelerations: 15X15 (Merna Halsmer, RN) Decelerations: None (Merna Halsmer, RN) Datetime: 09/14/2016 08:37 NBP Sys/Leanna/Mean (mmHg): 108 (QS system process) : 73 (QS system process) : 85 (QS system process) Pulse: 94 (QS system process) Respirations: 16 (Merna Halsmer, RN) LaborFlag: OB Triage (QS system process) Datetime: 09/14/2016 08:30 Monitor Mode: External (Merna Halsmer, RN) Frequency (min): OCC (Merna Halsmer, RN) Quality: Mild (Merna Halsmer, RN) Resting Tone (Palpate): Relaxed (Merna Halsmer, RN) Monitor Mode: External US (Merna Halsmer, RN) FHR Baseline Rate : 140 (Merna Halsmer, RN) FHR Baseline Changes: No Baseline Change (Merna Halsmer, RN) Variability: Minimal - Undetectable to <=5 bpm (Merna Halsmer, RN) Decelerations: None (Merna Halsmer, RN) Datetime: 09/14/2016 08:09 NBP Sys/Leanna/Mean (mmHg): 109 (QS system process) : 73 (QS system process) : 84 (QS system process) Pulse: 98 (QS system process) Respirations: 16 (Merna Halsmer, RN) LaborFlag: OB Triage (QS system process) Datetime: 09/14/2016 08:05 Patient Position/Activity: Left Lateral (Merna Farrell, ASHLEY) Hygiene: Underpad Changed (Merna Farrell RN) Communication: RN at Bedside; RN Reviewed Strip (Merna Farrell RN) Datetime: 09/14/2016 08:00 Monitor Mode: External; Palpation (Merna Farrell, RN) Frequency (min): 3-5 (Merna Farrell, RN) Quality: Mild (Merna Arizaer, RN) Duration (sec): 50-70 (Merna Arizaer, RN) Resting Tone (Palpate): Relaxed (Merna Farrell, RN) Monitor Mode: External US (Merna Farrell, RN) FHR Baseline Rate : 145 (Merna Arizaer, RN) FHR Baseline Changes: No Baseline Change (Merna Arizaer, RN) Variability: Moderate 6-25 bpm (Merna Arizaer, RN) Accelerations: 15X15 (Merna Arizaer, RN) Decelerations: Variable (Merna Arizaer, RN) Antibiotics: Penicillin IV (Units) @ (Annotations: 5 MILLION UNITS IV NOW ) (Merna Arizaer, RN) Datetime: 09/14/2016 07:43 Membrane Status: Ruptured (Merna Farrell RN) Membranes Ruptured Date/Time: 09/14/2016 05:00 (Merna Farrell RN) Membranes Rupture Method: Spontaneous (Merna Farrell RN) Amniotic Fluid Color: Clear (Merna Farrell RN) Amniotic Fluid Amount: Moderate (Merna Farerll RN) Amniotic Fluid Odor: Normal (Merna Farrell RN) Vaginal Bleeding: None (Merna Farrell RN) Dilatation (cm): 1-2 cm (Merna Farrell RN) Effacement: 40-50_ effaced (Merna Farrell RN) Station: minus 3 (Merna Farrell RN) Total Flores's Score: 5 (QS system process) : 5-8 = Small percentage of induction failure (QS system process) Level of Consciousness: Fully Conscious (Merna Farrell RN) DTR's/Clonus: DTRs 2+ (Merna Farrell RN) Headache: Denies (Merna Farrell RN) Breath Sounds, Left: Clear and Equal (Merna Farrell RN) Breath Sounds, Right: Clear and Equal (Merna Farrell RN) Nausea/Vomiting: Denies (Merna Farrell RN) RUQ Epigastric Pain: Denies (Merna Farrell RN) Instructional Method: Demo; Verbal; Written; Patient Instructed; Family/Support Person Instructed (Merna Farrell RN) Plan of Care: Plan of Care Discussed (Merna Farrell RN) Unit Routine: [place] to Room; Call Fung; Bed (Merna Farrell RN) Labor/Induction: Labor Stages; Augmentation (Merna Farrell RN) Pain Management: Epidural (Merna Farrell RN) Medications: Antibiotics; Pitocin (Merna Farrell RN) Related: Common Discomforts of ; Hydration (Merna Farrell RN) Grief Support: Procedure/Plan (Merna Farrell RN) Datetime: 09/14/2016 07:39 NBP Sys/Leanna/Mean (mmHg): 126 (QS system process) : 81 (QS system process) : 99 (QS system process) Pulse: 95 (QS system process) Respirations: 16 (Merna Farrell RN) Pain Scale: 0 (Merna Farrell RN) Pain Presence: None/Denies (Merna Farrell, ASHLEY) Pain Type: N/A (Merna Farrell, ASHLEY) LaborFlag: OB Triage (QS system process) Datetime: 09/14/2016 07:36 Communication Comments: [facility]ished. [facility] Datetime: 09/14/2016 07:30 Monitor Mode: External; Palpation (Connie Kossmann, RN) Frequency (min): irregular (Connie Kossmann, RN) Quality: Mild (Cnonie Kossmann, RN) Duration (sec): 90-120 (Connie Kossmann, RN) Resting Tone (Palpate): Relaxed (Connie Kossmann, RN) Monitor Mode: External US (Connie Kossmann, RN) FHR Baseline Rate : 140 (Connie Kossmann, RN) Variability: Moderate 6-25 bpm (Connie Kossmann, RN) Accelerations: 15X15 (Connie Kossmann, RN) Decelerations: None (Connie Kossmann, RN) Datetime: 09/14/2016 07:15 Monitor Mode: External; Palpation (Connie Kossmann, RN) Frequency (min): irregular (Connie Kossmann, RN) Quality: Mild (Connie Kossmann, RN) Duration (sec): 40-100 (Connie Kossmann, RN) Resting Tone (Palpate): Relaxed (Connie Kossmann, RN) Monitor Mode: External US (Connie Kossmann, RN) FHR Baseline Rate : 135 (Connie Kossmann, RN) Variability: Moderate 6-25 bpm (Connie Kossmann, RN) Decelerations: Variable (Connie Kossmann, RN) Datetime: 09/14/2016 07:07 NBP Sys/Leanna/Mean (mmHg): 117 (QS system process) : 81 (QS system process) : 94 (QS system process) Pulse: 100 (QS system process) Respirations: 16 (Merna Farrell RN) LaborFlag: OB Triage (QS system process) Datetime: 09/14/2016 07:00 Monitor Mode: External; Palpation (Connie Card RN) Frequency (min): irregular (Connie Card RN) Quality: Mild (Connie Card RN) Duration (sec): 50-60 (Connie Card RN) Resting Tone (Palpate): Relaxed (Connie Card RN) Monitor Mode: External US (Connie Card RN) FHR Baseline Rate : 140 (Connie Card RN) Variability: Moderate 6-25 bpm (Connie Card RN) Accelerations: 10X10 (Connie Card RN) Decelerations: None (Connie Card RN)
[2016-09-15] MEDS: IBUPROFEN 800 MG TABLET PO SCH ×3 (05:28→21:34)
--- NOTE | 2016-09-15 06:01 | L&D Current Admission ---
Current Admit Datetime Report Generated by CPN: 09/15/2016 06:00 ADMISSION INFORMATION Current Admit Date/Time: 09/14/2016 06:40 (09/14/2016 06:57:Connie Card RN) Reason for Admission: Rupture of Membranes (09/14/2016 06:57:Connie Card RN) Chief Complaint: Suspected Rupture of Membranes (09/14/2016 07:43:Merna Quiroga RN) Medications During : Vitamin (09/14/2016 06:57:Connie Card RN) EGA per Dates: 37.0 (09/14/2016 06:57:QS system process) EGA per US: 37.0 (09/14/2016 06:57:QS system process) Method of Arrival: Ambulatory (09/14/2016 06:57:Connie Card RN) Admitted From: Home (09/14/2016 06:57:Connie Card RN) Reason for Induction: Not Applicable (09/14/2016 06:57:Connie Card RN) Records Available: Yes (09/14/2016 06:57:Connie Card RN) General Admission Information: Reviewed (09/14/2016 06:57:Connie Card RN) BELONGINGS/ADVANCED DIRECTIVES Other Belongings: see valuable consent (09/14/2016 06:57:Connie Card RN) Disposition of Belongings: Kept with Patient (09/14/2016 06:57:Connie Card RN) Advance Direct for Healthcare: No, and Wants No Information (09/14/2016 06:57:Connie Card RN) Durable Power of Supervisor Cold Rolling: No (09/14/2016 06:57:Connie Card RN) Living Will: No (09/14/2016 06:57:Connie Card RN) Organ Donor: No (09/14/2016 06:57:Connie Card RN) Pt Rights Information Given: Yes (09/14/2016 06:57:Connie Card RN) Pt Understands Pt Rights: Yes (09/14/2016 06:57:Connie Card RN) Patient Rights Comments: given in patient access (09/14/2016 06:57:Connie Card RN) LEARNING ASSESSMENT Knowledge Level: Understands L_D Process; Understands Care Activities; Had Pre-Hospital Education; Understands Diagnosis (09/14/2016 06:57:Connie Card RN) Barriers to Learning: None (09/14/2016 06:57:Connie Card RN) Learning Readiness: Motivated (09/14/2016 06:57:Connie Card RN) Learns Best By: 1 to 1 Instruction; Reading; Videos; Group Discussion; Demonstration (09/14/2016 06:57:Connie Card RN) Learning Needs: Labor and Delivery Process; Pain Management; Symptoms to Report; Treatment Plan; Medication; Diagnosis; Nutrition; Equipment; Infant Care; Community Resources (09/14/2016 06:57:Connie Card RN) DOMESTIC VIOLANCE SCREENING Dom Viol Threatened/Hurt: No (09/14/2016 06:57:Connie Card RN) Hx of Abuse/Neglect past 2yrs: No (09/14/2016 06:57:Connie Card RN) Feel Unsafe Going Home: No (09/14/2016 06:57:Connie Card RN) Addt'l Observ Indicating Abuse: No (09/14/2016 06:57:Connie Card RN) Reason Unable to Complete Screen: N/A, Screen Completed (09/14/2016 06:57:Connie Card RN) Considered Personal Harm/Suicide: No (09/14/2016 06:57:Connie Card RN) NUTRITIONAL/FUNCTIONAL SCREENING Problem with Appetite >5 Days: No (09/14/2016 06:57:Connie Card RN) Chew/Swallow Difficulties: No (09/14/2016 06:57:Connie Card RN) Inappropriate Wt Gain/Loss: No (09/14/2016 06:57:Connie Card RN) Presence Skin Breakdown/Ulcer: No (09/14/2016 06:57:Connie Card RN) Special Diet: No (09/14/2016 06:57:Connie Card RN) Pt Requests Cash Analyst Visit: No (09/14/2016 06:57:Connie Card RN) Hx of Any of the Following?: N/A (09/14/2016 06:57:Connie Card RN) New Diagnosis of: N/A (09/14/2016 06:57:Connie Card RN) Requires Assist w/Ambulation: No (09/14/2016 06:57:Connie Card RN) Uses Assist Device to Ambulate: No (09/14/2016 06:57:Connie Card RN) Pt Requires Help w/ADL's: No (09/14/2016 06:57:Connie Card RN)
--- NOTE | 2016-09-15 06:01 | L&D General Admission ---
General Admit Datetime Report Generated by CPN: 09/15/2016 06:00 INFORMATION Patient Age: 25 (09/13/2016 20:15:QS system process) EDC: 10/05/2016 00:00 (09/13/2016 20:26:Sarahy Mcallister RN) EDC per Ultrasound: 10/05/2016 00:00 (09/13/2016 20:26:Sarahy Mcallister RN) : 2 (09/13/2016 20:26:Sarahy Mcallister RN) Para: 1 (09/13/2016 20:26:Sarahy Mcallister RN) : 1 (09/13/2016 20:26:Sarahy Mcallister RN) Livin (09/13/2016 20:26:Sarahy Mcallister RN) Baby, Number in Womb: 1 (09/14/2016 00:00:Sarahy Mcallister RN) CARE Primary Carpet Weaver: [facility] dept (09/13/2016 20:26:Sarahy Mcallister RN) Month of 1st Visit: 24 weeks (09/13/2016 20:26:Sarahy Mcallister RN) Adequate Care: Yes (09/13/2016 20:26:Sarahy Mcallister RN) Height (in): 59 (09/14/2016 18:23:QS system process) ALLERGIES Medication Allergy: No (09/13/2016 20:26:Sarahy Mcallister RN) Medication Allergies: No Known Allergies (09/14/2016) (09/14/2016 07:31:QS system process) Latex Allergy: No Latex Allergies (09/13/2016 20:26:Sarahy Mcallister RN) Food Allergies: denies (09/13/2016 20:26:Connie Card RN) Environmental Allergies: denies (09/13/2016 20:26:Connie Card RN) COMMUNICATION Primary Language: Tunisian (09/13/2016 20:26:Sarahy Mcallister RN) Medical Tx Preferred Language: Tunisian (09/13/2016 20:26:Sarahy Mcallister RN) Tunisian Communication Ability: Speaks Tunisian; Reads Tunisian (09/13/2016 20:26:Connie Card RN) Communication Barrier(s): None (09/13/2016::Connie Card RN) DEMOGRAPHICS Address: [address] [place] [id number] (09/13/2016 20:15:QS system process) Zipcode: [id number] (09/13/2016 20:15:QS system process) Home (09/13/2016 20:15:QS system process) SSN: [id number] (09/13/2016 20:15:QS system process) Next of Kin Name: LORETTA CORY (09/13/2016 20:15:QS system process) Next of Kin (09/13/2016 20:15:QS system process) Next of Kin Relationship: MO (09/13/2016 20:15:QS system process) Date of : 1990 (09/13/2016 20:15:QS system process) Marital Status: Single (09/13/2016 20:15:QS system process) Sex: Female (09/13/2016 20:15:QS system process) Race: (09/13/2016 20:15:QS system process) Ethnicity: Non- or (09/13/2016 20:15:QS system process) Gnosticist: None (09/13/2016 20:15:QS system process) DRUG AND ALCOHOL USE Alcohol: No (09/13/2016 20:26:Connie Card RN) Cigarettes: Never Smoker. [id number] (09/13/2016 20:26:Connie Card RN) Marijuana: No (09/13/2016 20:26:Connie Card RN) Cocaine: No (09/13/2016 20:26:Connie Card RN) Other Illicit Drugs: No (09/13/2016 20:26:Connie Card RN) VACCINE HISTORY Influenza Vaccine: No (09/13/2016 20:26:Connie Card RN) Pneumococcal Vaccine: No (09/13/2016 20:26:Connie Card RN) Tetanus Vaccine: Uncertain (09/13/2016 20:26:Connie Card RN) Tdap Vaccine: Yes (09/13/2016 20:26:Connie Card RN) Tdap Date: [facility] (09/13/2016 20:26:Connie Card RN) Hepatitis B Vaccine: No (09/13/2016 20:26:Connie Card RN) Turning Machine Operator: Other: [facility] (09/13/2016 20:26:Connie Card RN) Feeding Preference: Both (09/13/2016 20:26:Connie Card RN) Benefit of Breast Feed Discussed: Yes (09/13/2016 20:26:Connie Card RN) Circumcision: Yes (09/13/2016 20:26:Connie Card RN) Classes Attended: No (09/13/2016 20:26:Connie Card RN) Tubal Ligation: Yes (09/13/2016 20:26:Connie Card RN) Tubal Authorization Signed: Yes (09/13/2016 20:26:Connie Card RN) Consent: N/A (09/13/2016 20:26:Connie Card RN) Consent Signed: N/A (09/13/2016 20:26:Connie Card RN) Pain Management Plans: Medications; Epidural (09/13/2016 20:26:Connie Kossmann, RN) Plans for Labor and Delivery: None (09/13/2016 20:26:Connie Card RN) Support Person: Loretta (09/13/2016 20:26:Connie Card RN) Support Person Relationship: Mother (09/13/2016 20:26:Connie Card RN) Cultural/Spritual Practice: No (09/13/2016 20:26:Connie Card RN) Spir/Cult Dietary Needs: No (09/13/2016 20:26:Connie Card RN) LIVING SITUATION/DISCHARGE PLAN Living Arrangements: House (09/13/2016 20:26:Connie Card RN) Adequate Access to:: Electric; Heat; Refrigeration; Plumbing/Running water; Phone; Transportation (09/13/2016 20:26:Connie Card RN) WIC Program: Needs referral (09/13/2016 20:26:Connie Card RN) Discharge Telecom Assistant Person: Loretta (09/13/2016 20:26:Connie Card RN) Person to Help after Discharge: Loretta (09/13/2016 20:26:Connie Card, RN) Currently Using Commun Resources: Yes (09/13/2016 20:26:Connie Card RN) Specify Current Resource Used: medicaid (09/13/2016 20:26:Connie Card RN) Outside Agency/[employer]ender [employer] Worker: Yes (09/13/2016 20:26:Connie Card RN) Specify Agency/ [employer] Worker: [facility] (09/13/2016 20:26:Connie Card RN) Car Seat for Discharge: No (09/13/2016 20:26:Connie Card RN) Adoption Requested: No (09/13/2016 20:26:Connie Card RN) Pt Contact w/infant Post : N/A (09/13/2016 20:26:Connie Card RN) LABS Blood Type: O Positive (09/13/2016 20:26:Sarahy Mcallister RN) Hemoglobin: 12.5 (09/14/2016 06:47:QS system process) Hematocrit: 37.5 (09/14/2016 06:47:QS system process) MCV: 86 (09/14/2016 06:47:QS system process) Group Beta Strep: positive (09/13/2016 20:26:Connie Card RN) Gonorrhea: Negative (09/13/2016 20:26:Sarahy Mcallister RN) Chlamydia: Negative (09/13/2016 20:26:Sarahy Mcallister RN) RPR/VDRL: Nonreactive (09/13/2016 20:26:Sarahy Mcallister RN) HIV Exposure Test: Negative (09/13/2016 20:26:Sarahy Mcallister RN) Hepatitis B: Negative (09/13/2016 20:26:Sarahy Mcallister RN) Rubella: Immune (09/13/2016 20:26:Sarahy Mcallister RN) OB/PREVIOUS HISTORY Previous Procedures: Ultrasound; NST (09/13/2016 20:26:Connie Card RN) Current Procedures: Ultrasound; NST (09/13/2016 20:26:Connie Card RN) History of Previous : No (09/13/2016 20:26:Connie Card RN) History of Gestational Diabetes: No (09/13/2016 20:26:Connie Card RN) History of PIH: No (09/13/2016 20:26:Connie Card RN) History of Incompetent Cervix: No (09/13/2016 20:26:Connie Card RN) History of Placenta Previa/Abrup: No (09/13/2016 20:26:Connie Card RN) History of Macrosomia: No (09/13/2016 20:26:Connie Card RN) History of IUGR: No (09/13/2016 20:26:Connie Card RN) History of Hemorrhage: No (09/13/2016 20:26:Connie Card RN) History of Loss/Stillborn: No (09/13/2016 20:26:Connie Card RN) History of : No (09/13/2016 20:26:Connie Card RN) History of D (Rh) Sensitization: No (09/13/2016 20:26:Connie Card RN) History Recurrent Loss/Stillborn: No (09/13/2016 20:26:Connie Card RN) History Depression/PP Depression: No (09/13/2016 20:26:Connie Card RN) History of Uterine Anomaly/DIDI: No (09/13/2016 20:26:Connie Card RN) History of Infertility: No (09/13/2016 20:26:Connie Card RN) History of ART Treatment: No (09/13/2016 20:26:Connie Card RN) History of DIDI: No (09/13/2016 20:26:Connie Card RN) Comments Obstetrical History: G1: 34 weeks 4 lbs epidural G2: current , absent nasal bone per [facility] U/S (09/13/2016 20:26:Sarahy Mcallister RN) MEDICAL HISTORY Med Hx Diabetes: No (09/13/2016 20:26:Connie Card RN) Med Hx Hypertension: No (09/13/2016 20:26:Connie Card RN) Med Hx Heart Disease: No (09/13/2016 20:26:Connie Card RN) Med Hx Autoimmune Disorder: No (09/13/2016 20:26:Connie Card RN) Med Hx Kidney Disease/UTI: No (09/13/2016 20:26:Connie Card RN) Med Hx Neurologic/Epilepsy: No (09/13/2016 20:26:Connie Card RN) Med Hx Psychiatric Disorders: No (09/13/2016 20:26:Connie Card RN) Med Hx Hepatitis/Liver Disease: No (09/13/2016 20:26:Connie Card RN) Med Hx Varicosities/Phlebitis: No (09/13/2016 20:26:Connie Card RN) Med Hx Thyroid Dysfunction: No (09/13/2016 20:26:Connie Card RN) Med Hx Trauma/Violence: No (09/13/2016 20:26:Connie Card RN) Med Hx Blood Transfusion: No (09/13/2016 20:26:Connie Card RN) Med Hx Pulmonary (Asthma,TB): No (09/13/2016 20:26:Connie Card RN) Med Hx Breast: No (09/13/2016 20:26:Connie Card RN) Med Hx WAXER 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 Surgery: No (09/13/2016 20:26:Connie Card RN) Med Hx Hospitalization/Surgery: Yes (09/13/2016 20:26:Connie Card RN) Med Hx Anesthetic Complications: No (09/13/2016 20:26:Connie Card RN) Med Hx Abnormal Pap Smear: No (09/13/2016 20:26:Connie Card RN) Other Medical Diseases: No (09/13/2016 20:26:Connie Card RN) Med Hx Significant Family Hx: No (09/13/2016 20:26:Connie Card RN) Details of Med/Surg Hx: x 1 (09/13/2016 20:26:Connie Card RN) INFECTIOUS HISTORY Inf Hx Gonorrhea: No (09/13/2016 20:26:Connie Card RN) Inf Hx Chlamydia: No (09/13/2016 20:26:Connie Card RN) Inf Hx Syphilis: No (09/13/2016 20:26:Connie Card RN) Inf Hx HIV/AIDS: No (09/13/2016 20:26:Connie Card RN) Inf Hx Human Papilloma Virus: No (09/13/2016 20:26:Connie Card RN) Inf Hx Pt/Partner Genital Herpes: No (09/13/2016 20:26:Connie Card RN) Inf Hx Tuberculosis/Exposure: No (09/13/2016 20:26:Connie Card RN) Inf Hx Hepatitis B,C: No (09/13/2016 20:26:Connie Card RN) Inf Hx Rash or Viral Illness: No (09/13/2016 20:26:Connie Card RN) GENETIC HISTORY Gen Hx Age >=35 at LON: No (09/13/2016 20:26:Connie Card RN) Gen Hx Thalassemia: No (09/13/2016 20:26:Connie Card RN) Gen Hx Congenital Heart Defect: No (09/13/2016 20:26:Conine Card RN) Gen Hx Neural Tube Defect: No (09/13/2016 20:26:Connie Card RN) Gen Hx Down's Syndrome: No (09/13/2016 20:26:Connie Card RN) Gen Hx Nazario-Sachs: No (09/13/2016 20:26:Connie Card RN) Gen Hx Leonidas: No (09/13/2016 20:26:Connie Card RN) Gen Hx Familial Dysautonomia: No (09/13/2016 20:26:Connie Card RN) Gen Hx Sickle Cell Disease/Trait: No (09/13/2016 20:26:Connie Card RN) Gen Hx Hemophilia/Blood Disorder: No (09/13/2016 20:26:Connie Card RN) Gen Hx Muscular Dystrophy: No (09/13/2016 20:26:Connie Card RN) Gen Hx Cystic Fibrosis: No (09/13/2016 20:26:Connie Card RN) Gen Hx Huntingtons Chorea: No (09/13/2016 20:26:Connie Card RN) Gen Hx Mental Retardation/Autism: No (09/13/2016 20:26:Connie Card RN) Gen Hx Tested for Fragile X: No (09/13/2016 20:26:Connie Card RN) Gen Hx Other Inher/Chromosomal: No (09/13/2016 20:26:Connie Card RN) Gen Hx Maternal Metabolic DO: No (09/13/2016 20:26:Connie Card RN) Gen Hx Pt Father or FOB Defect: No (09/13/2016 20:26:Connie Card RN) Gen Hx Other Genetic History: Yes (09/13/2016 20:26:Connie Card RN) Gen Hx Drugs/Meds since LMP: No (09/13/2016 20:26:Connie Card RN) Gen Hx Medications: vitamins (09/13/2016 20:26:Connie Card RN) Details of Genetic History: pt 1 year old daughter with HTN and only one functioning kidney (09/13/2016 20:26:Connie Card RN)
--- NOTE | 2016-09-15 06:15 | L&D Care Plan ---
LD CARE PLANS Datetime Report Generated by CPN: 09/15/2016 06:15 Datetime: 09/14/2016 06:48 Pain State: Risk For (Sarahy Mcallister RN) Related To: Labor and Delivery Process; Surgical Procedure; Complication(s) of ; Disease Process; Treatment and Procedures; Post (Sarahy Mcallister RN) Goal(s): Patients Pain will be Assessed and Managed; Patient will Verbalize Adequate Relief of Pain or the Ability to Hernandez with Current Pain (Sarahy Mcallister RN) Interventions: Assess Pain Severity on Scale of 0 (None) to 5 (Severe); Assess Type, Location and Intensity of Pain Each Time Client Reports Discomfort and Notify Provider if Unusal Pain Develops; Encourage Proper Breathing and Relaxation Techniques; Offer Alternatives Such as Repositioning, Calm Environment, Massages, Diversional Activities, Ice Pack, Splinting, and Ambulation; Administer Analgesics as Ordered; Assist with Epidural Placement as Appropriate; Evaluate Therapeutic Effectiveness of Medication and Treatments (Sarahy Mcallister RN) Outcome: Patient will Report Absence or Relief of Pain Consistent with Established Pain Goal (Sarahy Mcallister RN) Status: Ongoing (Sarahy Mcallister RN) Outcome: Patient will have a Decrease in Signs and Symptoms of Discomfort (Sarahy Mcallister RN) Status: Ongoing (Sarahy Mcallister RN) Outcome: Pain will be Controlled During Procedures (Sarahy Mcallister RN) Status: Ongoing (Sarahy Mcallister RN) Anxiety State: Risk For (Sarahy Mcallister RN) Related To: Labor and Delivery Process; Surgical Procedure; Perceived or Actual Threat to ; Fear of Unknown; Situational Crisis; Medical Interventions; Significant Life Event (Sarahy Mcallister RN) Goal(s): Patient will have Decreased Anxiety and be able to Function at Acceptable Levels (Sarahy Mcallister RN) Interventions: Assess Verbal and Nonverbal Behavioral Indicators of Anxiety; Assist Patient to Identify and Verbalize Symptoms of Anxiety; Identify and Demonstrate Techniques to Control Anxiety; Assist Patient with Coping Mechanisms to Manage Anxiety; Provide Theraputic Touch for the Patient; Explain to Patient, Using a Calm Reassuring Approach and Nonmedical Terms, All Activities, Procedures, and Concerns; Instruct Patient and Family about Post Discharge Care, Limitations, Symptoms to Report and Resources Available (Sarahy Mcallister RN) Outcome: Patient will Identify, Verbalize and Demonstrate Techniques to Control Anxiety (Sarahy Mcallister RN) Status: Ongoing (Sarahy Mcallister RN) Outcome: Patient's Posture, Facial Expressions, Gestures and Activity Level will Reflect Decreased Anxiety (Sarahy Mcallister RN) Status: Ongoing (Sarahy Mcallister RN) Outcome: Patient will Verbalize a Sense of Control and/or Acceptance of the Situation (Sarahy Mcallister RN) Status: Ongoing (Sarahy Mcallister RN) Outcome: Patient will Identify and Utilize Support Person (Sarahy Mcallister RN) Status: Ongoing (Sarahy Mcallister RN) Knowledge Deficit State: Risk For (Sarahy Mcallister RN) Related To: Labor and Delivery Process; Surgical Procedures; Treatment and Procedures; Impending Alterations in Family Dynamics; Feeding and Infant Care; Community Resources and Available Support Mechanisms (Sarayh Mcallister RN) Goal(s): Patient will Accurately Verbalize Understanding of Plan of Care and Treatment; Patient and Family will Accurately Verbalize Understanding of the Disease Process (Sarahy Mcallister RN) Interventions: Assess Motivation and Willingness of Patient/Family to Learn; Assess Preferred Learning Mode: One to One Instruction, Reading, Videos, Group Discussion or Demonstration; Assess Barriers to Learning: Pain, Emotional State, Language Barrier, Cognitive Impairment, Visual or Hearing Deficits; Discuss Therapy and/or Treatment Options, Describe Rationale Behind Management, Therapy and Treatment Recommendations; Instruct Patient and Family on Signs and Symptoms to Report; Instruct Patient and Family on Medication Effects and Side Effects; Provide Appropriate and Timely Education Using Multiple Techniques; Provide Patient and Family with Support Group Information and Resources; Give Clear and Thorough Explanations and Demonstrations (Sarahy Mcallister RN) Outcome: Patient and Family will Verbalize Understanding of Condition, Treatment and Signs and Symptoms to Report (Sarahy Mcallister RN) Status: Ongoing (Sarahy Mcallister RN) Outcome: Patient will Identify Perceived Learning Needs and Express Motivation to Learn (Sarahy Mcallister RN) Status: Ongoing (Sarahy Mcallister RN) Outcome: Patient will Verbalize Understanding of Desired Content, and/or Performs Desired Skill Prior to Discharge (Sarahy Mcallister RN) Status: Ongoing (Sarahy Mcallister RN) Infection State: Risk For (Sarahy Mcallister RN) Related To: Surgical Procedures; Prolonged Labor or Induction; Invasive Procedures; Altered Tissue Integrity (Sarahy Mcallister RN) Goal(s): The Patient will be Free of Infection, Vital Signs Stable and Lab Work within Normal Parameters (Sarahy Mcallister RN) Interventions: Instruct and Reinforce Proper Handwashing, Hygiene, and Care Techniques to Patient and Family; Monitor Vital Signs; Monitor Patient for the Following Signs of Infection: Fever, Abdominal Tenderness, Unusual Discharge; Monitor Aminiotic Fluid, Urine and Lochia for Color and Odor; Observe Wounds, Incisions and Invasive Line Sites for Redness, Drainage and Edema; Assess IV Sites per Hospital Policy; Monitor Lab and Test Results and Notify Provider of Abnormal Findings; Assess Nutritional Status and Promote Good Nutrition (Sarahy Mcallister RN) Outcome: Patient will Remain Free of Infection (Sarahy Mcallister RN) Status: Ongoing (Sarahy Mcallister RN) Outcome: Infection will be Recognized Early to Allow for Prompt Treatment (Sarahy Mcallister RN) Status: Ongoing (Sarahy Mcallister RN) Outcome: Patient will have Vital Signs Within Expected Range (Sarahy Mcallister RN) Status: Ongoing (Sarahy Mcallister RN) Fluid Volume State: Risk For (Sarahy Mcallister RN) Related To: Gestational Hypertension; Surgical Procedures; Prolonged Labor or Induction; Hemorrhage; Disease Process; Anesthesia; Altered Renal Function (Sarahy Mcallister RN) Goal(s): Patient will Achieve and Maintain a Balanced Fluid Volume Status; Hemodynamically Stable (Sarahy Mcallister RN) Interventions: Monitor Vital Signs; Auscultate Breath Sounds; Monitor Patient for Skin Turgor, Mucous Membranes, Dry Skin, Weakness, Headaches and Confusion; Provide Oral Fluids as Ordered; Initiate and Maintain Intravenous Fluids as Ordered; Monitor Intake and Output as Indicated Per Patient Status; Accurately Measure Blood Loss; Monitor Lab and Test Results as Obtained and Notify Provider of Abnormal Findings; Monitor Patient's Weight (Sarahy Mcallister RN) Outcome: Patient will have Clear Lung Sounds (Sarahy Mcallister RN) Status: Ongoing (Sarahy Mcallister RN) Outcome: Patient will have Vital Signs within Expected Range (Sarahy Mcallister RN) Status: Ongoing (Sarahy Mcallister RN) Outcome: Urine Output will be within Expected Range (Sarahy Mcallister RN) Status: Ongoing (Sarahy Mcallister RN) Outcome: Patient will have Minimal Generalized or Upper Extremity Edema (Sarahy Mcallister RN) Status: Ongoing (Sarahy Mcallister RN) Injury State: Risk For (Sarahy Mcallister RN) Related To: Labor and Delivery Process; Gestational Hypertension or Eclampsia; Anesthesia; Altered Coagulation; Risk to Status; Uteroplacental Perfusion; Decreased Mobility; Hemorrhage, Placenta Previa and or Placental Abruption; Uterine Rupture (Sarahy Mcallister RN) Goal(s): Patient will Remain Free from Injury (Sarahy Mcallister RN) Interventions: Monitoring as per Hospital Protocol; Assess Neurological Status; Perform Risk Assessment of Patients with Induction and ; Perform Fall Risk Assessment and Prevention per Hospital Protocol; Perform DVT Risk Assessment and Prophylaxis per Hospital Protocol; Ensure that Oxygen, Suction, and Resuscitation Medications and Equipment are Readily Available; Confirm Patient ID Prior to Procedure(s) and Medication Administration per Hospital Policy (Sarahy Mcallister RN) Outcome: Successful Fall Risk Prevention (Sarahy Mcallister RN) Status: Ongoing (Sarahy Mcallister RN) Outcome: Patient will Deliver without Adverse Sequela (Sarahy Mcallister RN) Status: Ongoing (Sarahy Mcallister RN) Outcome: Patient's Neurological Status will Remain Stable (Sarahy Mcallister RN) Status: Ongoing (Sarahy Mcallister RN) Impaired Skin Integrity State: Risk For (Sarahy Mcallister RN) Related To: Vaginal Delivery; Surgical Procedures; Prolonged Bedrest; Altered Tissue Integrity; Invasive Procedures (Sarahy Mcallister RN) Goal(s): Patient will Maintain Optimal Skin Integrity, Free of Breakdown, Injury or Infection (Sarahy Mcallister RN) Interventions: Complete Screening for Pressure Ulcer Risk and Initiate Protocol per Hospital Policy; Monitor Site of Skin Impairment for Color Changes, Redness, Swelling, Warmth, Pain or Other Signs of Infection; Encourage and Assist with Position Changes; Monitor Patient's Mobility Status; Provide Adequate Nutrition and Fluids; Teach Patient Appropriate Hygienic Care; Teach Patient/Family Skin Care Management (Sarahy Mcallister RN) Outcome: Patient will not have Evidence of Injury Such as Skin Breakdown, Scrapes, Cuts, or Bruising (Sarahy Mcallister RN) Status: Ongoing (Sarahy Mcallister RN) Outcome: Patient will Report Any Altered Sensation or Pain at Site of Skin Impairment (Sarahy Mcallister RN) Status: Ongoing (Sarahy Mcallister RN) Outcome: Patients Incisions and Wounds will be without Signs or Symptoms of Infection (Sarahy Mcallister RN) Outcome: Patient will Demonstrate Understanding of Plan to Heal Skin and Prevent Reinjury and Verbalize Risk Factors (Sarahy Mcallister RN) Status: Ongoing (Sarahy Mcallister RN) Parenting Impaired State: Risk For (Connie Card RN) Other Diagnosis or r/t: PATIENT HAS DIFFICULTY UNDERSTANDING CERTAIN QUESTIONS AND IS A POOR HISTORIAN, POSSIBLE DEFECT (Connie Card, ASHLEY) Goal(s): Parents will Demonstrate Progressive Parenting Behaviors (Connie Card RN) Interventions: Assess for Adequacy of Support Systems; Observe and Encourage Patient/Family Infant Attachment and Bonding Activities and Provide Feedback; Assess Patient/Family Understanding of 's Condition and Provide Accurate Information About Condition, Treatment and Prognosis; Assess for Patient/Family Behaviors that May Indicate Lack of Attachment; Provide a Safe Non-judgmental Environment for Patient/Family to Discuss Concerns; Promote Patient/Family Cohesiveness by Encouraging Discussion and Problem Solving; Gang Boss Referral as Indicated (Connie Card RN) Outcome: Patient/Family will Discuss Their Fears and the Possibility of Difficulties with Parenting (Connie Card RN) Status: Ongoing (Connie Card RN) Outcome: Patient/Family will Exhibit Appropriate Bonding Behaviors with Infant (Connie Card RN) Status: Ongoing (Connie Card RN) Outcome: Patient/Family will Verbalize Positive Feelings and Demonstrate Affection and Caring Toward (Connie Card RN) Status: Ongoing (Connie Card RN) Nutrition State: Risk For (Connie Card RN) Related To: ; (Connie Card RN) Goal(s): Patient will have an Intake of Nutrients Sufficient to Meet Metabolic Needs (Connie Card RN) Interventions: Nutritional Screening and Assessment per Hospital Policy; Consult Check Services Clerk for Further Assessment and Recommendations Regarding Food Preferences and Nutritional Support; Allow Patient to Plan and Order Diet when Possible; Monitor Laboratory Values That Indicate Nutritional Well-being; Consult City Letter Carrier for Nutritional Support Regarding Requirements; Document Actual Weight Initially and Weekly (Do Not Estimate); Encourage Patient Participation in Maintaining a Food Log as Indicated; Educate Patient on the Importance of Maintaining an Adequate Caloric Intake (Connie Card RN) Outcome: Patient will Receive Adequate Calories and Fluid Volume to Meet Metabolic Needs (Connie Card RN) Status: Ongoing (Connie Card RN) Outcome: Patient will Select Foods or Meals that Support Adequate Nutrition (Connie Card RN) Status: Ongoing (Connie Card RN) Grieving State: Not Applicable (Connie Card RN) Additional Care Plan State: Actual (Connie Card RN) Nursing Diagnosis or r/t: (Connie Card RN) Goal(s): - Q 2-3 HOURS -NO PACIFIERS -ROOMING IN (Connie Card RN) Interventions: -WILL HAVE INVESTMENT PROFESSIONAL EVALUATE -WILL ACCESS NEEDS NECESSARY (Connie Card RN) Outcome Status: Ongoing (Connie Card RN)
[2016-09-15 08:57] LABS: HEMATOCRIT 35.3 % (36.0-47.0); HGB HCT DIFFERENCE 0.7; MEAN CORPUSCULAR HEMOGLOBIN 28.7 pg (27.0-33.4); MEAN CORPUSCULAR HGB CONC 33.9 g/dL (32.0-36.0); MEAN CORPUSCULAR VOLUME 85 fl (80-97); RED BLOOD COUNT 4.16 10^6/uL (3.72-5.28); WHITE BLOOD COUNT 11.3 10^3/uL (4.0-10.5)
[2016-09-15] MEDS: DOCUSATE SODIUM 100 MG CAPSULE PO SCH ×2 (09:10→17:34)
[2016-09-15] MEDS: PRENATAL VITAMIN W-O CA NO5/FE FUMARATE/FA CAPSULE PO SCH (09:10)
[2016-09-15] MEDS: SENNOSIDES/DOCUSATE 8.6-50 MG 1 EACH TABLET PO SCH (09:10)
[2016-09-15] MEDS: FERROUS SULFATE 325 MG TABLET PO SCH ×2 (09:10→17:34)
--- NOTE | 2016-09-15 12:16 | PDOC PROGRESS REPORT ---
Subjective-OB Subjective: Post Delivery Day: 25 year old. Denies any needs at this time pt bonding well with infant ff@u-1 mild lochia breast and bottle feeding teamcenter consultant to bedside to assist patient with anticipate d/c in AM Physical Exam (OB) Vital Signs: Temp Pulse Resp BP Pulse Ox 97.9 F 91 18 117/76 100 09/15/16 08:17 09/15/16 08:17 09/15/16 08:17 09/15/16 08:17 09/15/16 08:17 Intake & Output 09/14/16 09/15/16 09/16/16 06:59 06:59 06:59 Weight 71.82 kg - Lochia Lochia Amount: Scant < 10 ml Lochia Color: Rubra/Red - Abdomen Description: Tender, Soft Hernia Present: No Fundal Description: Firm, Midline Fundal Height: u/u - u/2 Objective-Diagnostic Laboratory: 09/15/16 08:46 09/15/16 08:46 WBC 11.3 H RBC 4.16 Hgb 12.0 Hct 35.3 L MCV 85 MCH 28.7 MCHC 33.9 RDW 15.0 H Plt Count 141 L
[2016-09-16] MEDS: IBUPROFEN 800 MG TABLET PO SCH (05:37)
[2016-09-16 08:51] VITALS: BP 120/73
[2016-09-16] MEDS: FERROUS SULFATE 325 MG TABLET PO SCH (09:35)
[2016-09-16] MEDS: DOCUSATE SODIUM 100 MG CAPSULE PO SCH (09:35)
[2016-09-16] MEDS: SENNOSIDES/DOCUSATE 8.6-50 MG 1 EACH TABLET PO SCH (09:35)
[2016-09-16] MEDS: PRENATAL VITAMIN W-O CA NO5/FE FUMARATE/FA CAPSULE PO SCH (09:35)
--- NOTE | 2016-09-16 12:26 | PDOC DISCHARGE SUMMARY ---
Final Diagnosis Discharge Date: 09/16/16 Discharge Data - Discharge Medication Home Medications: Vit#96/Ferrous Fum/FA [ Tablet] 1 tab PO DAILY 01/03/15 Ibuprofen [Motrin 800 mg Tablet] 800 mg PO Q8 #60 tablet 09/16/16 Reason(s) for Admission: Onset of Labor Procedures: NST Intrapartum Procedure(s): Spontaneous Vaginal Delivery Complication(s): Laceration-Vaginal Laceration-Degree: 2nd - Diagnosis Test Laboratory: Temp Pulse Resp BP Pulse Ox 98.2 F 84 16 120/73 96 09/16/16 08:31 09/16/16 08:51 09/16/16 08:31 09/16/16 08:31 09/16/16 08:31 09/14/16 09/14/16 09/15/16 06:24 06:47 08:46 RBC 4.36 4.16 Hgb 12.5 12.0 Hct 37.5 35.3 L Urine Opiates Screen NEGATIVE - Discharge information/Instructions Discharge Activity: Activity As Tolerated, No Lifting Over 10 Pounds, Pelvic Rest, No tub bath Discharge Diet: Regular Disposition: HOME, SELF-CARE Follow up with: [facility] in: 4, Weeks
--- NOTE | 2016-09-21 13:15 | Delivery Summary ---
Del Sum A-C Datetime Report Generated by CPN: 09/21/2016 13:15 ADMISSION DATA Chief Complaint: Suspected Ruptured Membranes Indication for Induction: PROM Admission Impression: Term, Intrauterine Admit Provider Comments: 25yo @37wga into L_D with SROM @ 0500. Pt. with limited and late entry to care (5 visits with first at 24w but had a 12w6d dating u/s with Final LON 10/05/16). Hx of PPROM and delivery at 34w in 2014. This significant for missing nasal bone on fetus. Pt. is [place], [place], GBS positive in urine (declined treatment at [facility]) had first dose of PCN this am. Desires BTL. Missed window for quad screen but had informa done at dant neg results per pt. Last u/s on 09/04 with EFW @ 15%ile, AC <5%ile. Denies any other hx. Started on GBS protocol and pitocin for augment. Denies pain at this time. Planning on epidural for pain control. DELIVERY PERSONNEL Delivery Doctor:: Vanessa Sanchez MD Labor and Delivery Nurse:: EDITH Herman Nursery Nurse:: Marce Kendrick RN Theater Projectionist/RUBBER TURNER: Sandy Silverio, RUBBER TURNER II MATERNAL INFORMATION Delivery Anesthesia: None Medications After Delivery: Pitocin Drip 20 Units/1000ml NSS Estimated Blood Loss (ml): 200 Maternal Complications: None Provider Comments: LOP presentation at delivery. Neonatalogist aware of findings from M visit of absent nasal bone. Informaseq reported to be negative by patient who received phone call earlier today. LABOR SUMMARY EDC: 10/05/2016 00:00 No. Babies in Womb: 1 Attempted: Yes Labor Anesthesia: IV Sedation LABOR INFORMATION Reason for Induction: Premature Rupture of Membranes Onset of Labor: 09/14/2016 05:00 Complete Dilatation: 09/14/2016 13:45 Oxytocin: Induction Group B Beta Strep: positive Antibiotics # of Doses: 3 Antibiotics Time of Last Dose: 1230 Name of Antibiotic Given: penicillin Steroids Given: None Reason Steroids Not Administered: Not Applicable MEMBRANES Membranes Rupture Method: Spontaneous Rupture of Membranes: 09/14/2016 05:00 Length of Rupture (hr): 8.97 Amniotic Fluid Color: Clear Amniotic Fluid Amount: Moderate Amniotic Fluid Odor: Normal STAGES OF LABOR Stage 1 hr: 8 Stage 1 min: 45 Stage 2 hr: 0 Stage 2 min: 13 VAGINAL DELIVERY Episiotomy: None Laceration Extension: Second Degree Laceration Type: Vaginal Laceration Repair: Yes Laceration Repair Note: 2-0 chromic in routine fashion Sponge Count Correct: N/A Sharps Count Correct: Yes BABY A INFORMATION Infant Delivery Date/Time: 09/14/2016 13:58 Method of Delivery: Vaginal Born in Route : No : N/A Forceps: N/A Vacuum Extraction: N/A Shoulder Dystocia : No PRESENTATION/POSITION BABY A Presentation: Cephalic Cephalic Presentation: Vertex Vertex Position: Left Occipital Posterior Breech Presentation: N/A PLACENTA INFORMATION BABY A Placenta Method of Delivery: Spontaneous SCORES BABY A Heart Rate 1 min: >100 bpm Resp Effort 1 min: Good Cry Reflex Irritability 1 min: Cough or Sneeze or Pulls Away Muscle Tone 1 min: Active Motion Color 1 min: Body [place], Extremities Blue Resuscitation Effort 1 min: Tactile Stimulation SCORE 1 MIN: 9 Heart Rate 5 min: >100 bpm Resp Effort 5 min: Good Cry Reflex Irritability 5 min: Cough or Sneeze or Pulls Away Muscle Tone 5 min: Active Motion Color 5 min: Body [place], Extremities Blue Resuscitation Effort 5 min: N/A SCORE 5 MIN: 9 INFANT INFORMATION BABY A Gestational Age at Delivery: 37.0 Gestational Status: Early Term- 37- 38.6 Weeks Outcome : Liveborn Infant Condition : Stable Infant Sex: Male IDENTIFICATION BABY A Infant Verification Date/Time: 09/14/2016 14:47 ID Band Number: [id number] Mother's Name Verified: Yes Infant RN Verifying Infant: A Silverio RUBBER TURNER/D [employer] RNC WEIGHT/LENGTH BABY A Birthweight (gm): 2350 Infant Weight (lb): 5 Weight (oz): 3 Length (in): 18.50 Infant Length (cm): 46.99 ASSESSMENT BABY A Skin to Skin: Yes BABY B INFORMATION : N/A SIGNATURES Signature: with User ID: Maged
== END 2016-09-16 14:01 | disposition home or self-care (01) | DRG 775 ==
LOC: LC 06:06 → UNDOADMIN 06:31 → NUR 06:31 → LR 06:31 → 2S 18:22
PROVIDERS: ADMIT Student in an Organized Health Care Education/Training Program; ATTEND Student in an Organized Health Care Education/Training Program
PROC: 10E0XZZ Delivery of Products of Conception, External Approach (ICD-10-PCS; principal; 2016-09-14)
PROC: 0KQM0ZZ Repair Perineum Muscle, Open Approach (ICD-10-PCS; 2016-09-14)
PROC: 3E0P7GC Introduction of Other Therapeutic Substance into Female Reproductive, Via Natural or Artificial Opening (ICD-10-PCS; 2016-09-14)
PROC: 4A1HXCZ Monitoring of Products of Conception, Cardiac Rate, External Approach (ICD-10-PCS; 2016-09-14)
DX: O70.1 Second degree perineal laceration during delivery (principal); O42.02 Full-term premature rupture of membranes, onset of labor within 24 hours of rupture; O99.824 Streptococcus B carrier state complicating childbirth; Z3A.37 37 weeks gestation of pregnancy; Z37.0 Single live birth
CPT/HCPCS: 36415; 59025; 80307; 81005; 84112; 85025; 85027; 86592; 86850; 86900; 86901; 88307; J2540; J2590; J3010; J3490

== ENCOUNTER → 2018-06-20 | Outpatient (CLI) | payer MEDICAID ==
--- NOTE | 2018-06-20 13:59 | RADIOLOGY REPORT (SQ) ---
EXAM DESCRIPTION: U/S BA6HIOR TRNABD 1GES W/ODOP COMPLETED DATE/TIME: 06/20/2018 1:43 pm REASON FOR STUDY: ENCOUNTER FOR SUPERVISION OF OTHER NORMAL , FIRST 1TRIMESTER Z34.81 ENCO UNTER FOR SUPRVSN OF NORMAL , FIRST TRIM COMPARISON: None. TECHNIQUE: Transabdominal static and realtime grayscale images acquired of the pelvis. Additional se lected spectral and color Doppler images recorded. All images stored on PACs. bHCG: Not applicable. CLINICAL DATES: LMP 04/05/2018. 10 weeks 6 days. LIMITATIONS: None. FINDINGS: FETUS: Single Living intrauterine . ULTRASOUND EGA: 11 weeks 5 days. ULTRASOUND LON: 01/04/2019 EFW: Not applicable less than 20 weeks. CRL: 5 cm. FHR: 168 beats per minute. SURVEY: Too early to assess. AMNIOTIC FLUID: Adequate amount. PLACENTA: Posterior. SUBCHORIONIC BLEED: No SIZE OF BLEED: Not applicable. UTERUS: No masses or anomalies. 13 x 11.1 x 7.9 cm. CERVICAL LENGTH: 3 cm. Closed. RIGHT ADNEXA: Normal ovary with normal vascular flow. 3.6 x 2.2 x 2.3 cm. No adnexal free fluid. No adnexal masses. LEFT ADNEXA: Ovary not seen. No adnexal free fluid. No adnexal masses. FREE FLUID: None. OTHER: No other significant finding. IMPRESSION: LIVING INTRAUTERINE . EGA 11 weeks 5 days. Trimester of : First - 0 to 13 weeks. TECHNICAL DOCUMENTATION: JOB ID: [id number] [employer]- All Rights Reserved rev-12/03 Reading location - IP/workstation name: [email or web address]
== END ==
LOC: RAD 13:07
PROVIDERS: ATTEND Nurse Practitioner
DX: Z34.81 Encounter for supervision of other normal pregnancy, first trimester (principal)
CPT/HCPCS: 76801

== ENCOUNTER 2018-07-21 11:07 | Emergency (ER) | payer MEDICAID ==
[2018-07-21 11:12] VITALS: BP 112/72
[2018-07-21] MEDS ORDERED: ACETAMINOPHEN 325 MG TABLET PO ONE (12:08)
--- NOTE | 2018-07-21 12:09 | ER Document Report ---
ED Medical Screen (RME) - General Chief Complaint: OB Problem (<20wks) Stated Complaint: ABDOMINAL PAIN, VAGINAL BLEEDING Time Seen by Provider: 07/21/18 12:07 TRAVEL OUTSIDE OF THE [place] IN LAST 30 DAYS: No - Related Data Allergies/Adverse Reactions: No Known Allergies Allergy (Verified 07/21/18 11:09) Past Medical History - Immunizations Hx Diphtheria, Pertussis, Tetanus Vaccination: No Physical Exam - Vital signs Vitals: Temp Pulse Resp BP Pulse Ox 98.2 F 103 H 16 112/72 100 07/21/18 11:11 07/21/18 11:11 07/21/18 11:11 07/21/18 11:11 07/21/18 11:11 Course - Re-evaluation Re-evalutation: 07/21/18 12:08 17 wk prengant female, fell onto floor vaginal spotting thereafter. She does not know her blood type. We will give Tylenol will obtain an ultrasound. Will obtain RhoGam workup. I have seen and performed a rapid medical screening examination on this patient, workup has been initiated however there will require further evaluation reassessment and disposition determination from a secondary provider. - Vital Signs Vital signs: Temp Pulse Resp BP Pulse Ox 98.2 F 103 H 16 112/72 100 07/21/18 11:11 07/21/18 11:11 07/21/18 11:11 07/21/18 11:11 07/21/18 11:11 Doctor's Discharge - Discharge Referrals: RAMON APONTE, JOSHUA [Primary Care Provider] - Follow up as needed
[2018-07-21 12:41] LABS: APPEARANCE,URINE SLIGHTLY-CLOUDY; BILIRUBIN,URINE NEGATIVE (NEGATIVE); COLOR,URINE YELLOW; GLUCOSE, URINE NEGATIVE (NEGATIVE); KETONES,URINE NEGATIVE (NEGATIVE); LEUKOCYTE ESTERASE,URINE TRACE (NEGATIVE); NITRITE,URINE NEGATIVE (NEGATIVE); PROTEIN,URINE NEGATIVE (NEGATIVE); URINE SPECIFIC GRAVITY 1.016
== END 2018-07-21 13:39 | disposition left against medical advice (07) ==
LOC: ER 11:07
DX: O20.9 Hemorrhage in early pregnancy, unspecified (principal); R10.9 Unspecified abdominal pain; Z3A.17 17 weeks gestation of pregnancy
CPT/HCPCS: 99281; 86900; 86901; 36415; 81001; J3490

== ENCOUNTER 2018-09-26 22:03 | Outpatient (CLI) | payer MEDICAID ==
[2018-09-26 22:33] LABS: APPEARANCE,URINE CLEAR; BILIRUBIN,URINE NEGATIVE (NEGATIVE); COLOR,URINE YELLOW; GLUCOSE, URINE NEGATIVE (NEGATIVE); KETONES,URINE NEGATIVE (NEGATIVE); LEUKOCYTE ESTERASE,URINE NEGATIVE (NEGATIVE); NITRITE,URINE NEGATIVE (NEGATIVE); PROTEIN,URINE NEGATIVE (NEGATIVE); URINE SPECIFIC GRAVITY 1.016
[2018-09-26 22:49] LABS: URINE AMPHETAMINES SCREEN NEGATIVE; URINE BARBITURATES SCREEN NEGATIVE; URINE BENZODIAZEPINES SCREEN NEGATIVE; URINE COCAINE SCREEN NEGATIVE; URINE MARIJUANA (THC) SCREEN NEGATIVE; URINE METHADONE SCREEN NEGATIVE; URINE PHENCYCLIDINE SCREEN NEGATIVE
--- NOTE | 2018-09-26 23:24 | RADIOLOGY REPORT (SQ) ---
US PELVIS HISTORY: Pelvic pain. COMPARISON: 06/20/2018 TECHNIQUE: Grayscale, color Doppler, and spectral Doppler ultrasound images of the pelvis were obtained. FINDINGS: There is an intrauterine fetus in vertex position. The placenta is posterior. The cervix is closed and measures 3.6 cm in length. A heart rate is 149 bpm. BRIANA is 13.7 cm. IMPRESSION: Single IUP with heart rate 149 bpm. Closed cervix.
== END 2018-09-26 23:28 | disposition home or self-care (01) ==
LOC: LC 22:03
PROVIDERS: ATTEND Obstetrics & Gynecology
PROC: 4A1HXCZ Monitoring of Products of Conception, Cardiac Rate, External Approach (ICD-10-PCS; principal; 2018-09-26)
DX: O26.893 Other specified pregnancy related conditions, third trimester (principal); R10.2 Pelvic and perineal pain; Z3A.29 29 weeks gestation of pregnancy
CPT/HCPCS: 76815; 80307; 81001; 84112

== ENCOUNTER 2018-11-18 09:40 | Emergency (ER) | payer MEDICAID ==
[2018-11-18] MEDS ORDERED: NORMAL SALINE 1000 ML 1,000 ML IV ONE (10:19)
--- NOTE | 2018-11-18 10:20 | ER Document Report ---
ED Dizziness/Weakness - General Chief Complaint: Near Syncope Stated Complaint: SKIN PROBLEM Time Seen by Provider: 11/18/18 10:10 Primary Care Provider: [facility] [Provider Group] - Follow up tomorrow RAMON APONTE APRN [NO LOCAL MD] - Follow up as needed Mode of Arrival: Ambulatory Information source: Patient Notes: Patient is presently G3, P2 and is here at the insistence of her employer to be evaluated for exposure to scabies. Patient had a coworker who developed scabies. Patient presently denies any rash or pruritus. Patient does state that she has been feeling faint occasionally while at work. Patient is 33 weeks at this time. Patient states that she did eat breakfast today. Patient denies any chest pain, headache, urinary symptoms, nausea vomiting or diarrhea. Patient does attribute her symptoms to possible dehydration. Patient states she did drink some water and she is feeling somewhat improved. Patient does state that she was told that she has either thyroid or diabetic issue and she was given a prescription for medicine which she has not started to take. Patient is a poor historian. TRAVEL OUTSIDE OF THE [place] IN LAST 30 DAYS: No - HPI Patient complains to provider of: Near-syncope Onset: This morning Onset/Duration: Better Quality of pain: No pain Pain Level: Denies Associated symptoms: Lightheaded. 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 denies: Fever, Recent illness EENT: No symptoms reported Cardiovascular: Lightheaded. denies: Chest pain, Palpitations, Dizziness Respiratory: No symptoms reported. denies: Cough, Short of breath Gastrointestinal: No symptoms reported. denies: Abdominal pain, Diarrhea, Nausea, Vomiting Genitourinary: No symptoms reported. denies: Dysuria, Flank pain Female Genitourinary: . denies: Vaginal discharge, Vaginal bleeding Musculoskeletal: No symptoms reported. denies: Back pain Skin: No symptoms reported. denies: Rash Hematologic/Lymphatic: No symptoms reported Neurological/Psychological: No symptoms reported Physical Exam - Vital signs Vitals: Temp Pulse Resp BP Pulse Ox 98.2 F 91 20 122/73 98 11/18/18 10:01 11/18/18 10:01 11/18/18 10:01 11/18/18 10:01 11/18/18 10:01 - General General appearance: Appears well, Alert In distress: None - HEENT Head: Normocephalic, Atraumatic Eyes: Normal Conjunctiva: Normal Nasal: Normal Mouth/Lips: Normal Mucous membranes: Normal Neck: Normal, Supple. No: Lymphadenopathy - Respiratory Respiratory status: No respiratory distress Chest status: Nontender Breath sounds: Normal. No: Rales, Rhonchi, Stridor, Wheezing Chest palpation: Normal - Cardiovascular Rhythm: Regular Heart sounds: S1 appreciated, S2 appreciated Murmur: No - Abdominal Inspection: Gravid female Distension: No distension Bowel sounds: Normal Tenderness: Nontender - Back Back: Normal, Nontender. No: CVA tenderness - Extremities General upper extremity: Normal inspection, Normal strength General lower extremity: Normal inspection, Normal strength - Neurological Neuro grossly intact: Yes Cognition: Normal Hiram Coma Scale Eye Opening: Spontaneous Tess Coma Scale Verbal: Oriented Tess Coma Scale Motor: Obeys Commands Tess Coma Scale Total: 15 - Psychological Associated symptoms: Normal affect, Normal mood - Skin Skin Temperature: Warm Skin Moisture: Dry Skin Color: Normal Skin irregularity: negative: Rash Course - Re-evaluation Re-evalutation: 11/18/18 Patient reports feeling much better. Patient tolerating oral fluids and has eaten crackers while here today. Discussed with patient findings on urinalysis. Urine culture will be obtained at this time. Patient without any skin lesions that are worrisome for scabies at this time. 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 - Vital Signs Vital signs: Temp Pulse Resp BP Pulse Ox 98.4 F 97 16 113/64 100 11/18/18 12:41 11/18/18 12:41 11/18/18 12:41 11/18/18 12:41 11/18/18 12:41 - Laboratory Result Diagrams: 11/18/18 10:38 11/18/18 10:38 Laboratory results interpreted by me: 11/18/18 11/18/18 11/18/18 10:38 10:38 10:38 Hgb 11.1 L Hct 33.0 L Plt Count 141 L Sodium 136.4 L Chloride 108 H Glucose 72 L Albumin 3.3 L Free T3 pg/mL 2.73 L Ur Leukocyte Esterase 11/18/18 11:28 Hgb Hct Plt Count Sodium Chloride Glucose Albumin Free T3 pg/mL Ur Leukocyte Esterase LARGE H Labs- Entire Visit 11/18/18 11/18/18 11/18/18 10:38 10:38 10:38 WBC 5.4 RBC 3.88 Hgb 11.1 L Hct 33.0 L MCV 85 MCH 28.6 MCHC 33.6 RDW 13.0 Plt Count 141 L Seg Neutrophils % 75.8 Lymphocytes % 14.0 Monocytes % 9.2 Eosinophils % 0.7 Basophils % 0.3 Absolute Neutrophils 4.1 Absolute Lymphocytes 0.8 Absolute Monocytes 0.5 Absolute Eosinophils 0.0 Absolute Basophils 0.0 Sodium 136.4 L Potassium 3.9 Chloride 108 H Carbon Dioxide 23 Anion Gap 5 BUN 8 Creatinine 0.52 Est GFR ( Amer) > 60 Est GFR (Non-Af Amer) > 60 Glucose 72 L Calcium 8.9 Total Bilirubin 0.4 Direct Bilirubin 0.2 Neonat Total Bilirubin Not Reportable Neonat Direct Bilirubin Not Reportable Neonat Indirect Bili Not Reportable AST 20 ALT 24 Alkaline Phosphatase 86 Total Protein 6.6 Albumin 3.3 L TSH 1.20 Free T4 0.88 Free T3 pg/mL 2.73 L Urine Color Urine Appearance Urine pH Ur Specific Daisy Urine Protein Urine Glucose (UA) Urine Ketones Urine Blood Urine Nitrite Urine Bilirubin Urine Urobilinogen Ur Leukocyte Esterase Urine WBC (Auto) Urine RBC (Auto) Urine Bacteria (Auto) Squamous Epi Cells Auto Urine Mucus (Auto) Urine Ascorbic Acid 11/18/18 11:28 WBC RBC Hgb Hct MCV MCH MCHC RDW Plt Count Seg Neutrophils % Lymphocytes % Monocytes % Eosinophils % Basophils % Absolute Neutrophils Absolute Lymphocytes Absolute Monocytes Absolute Eosinophils Absolute Basophils Sodium Potassium Chloride Carbon Dioxide Anion Gap BUN Creatinine Est GFR ( Amer) Est GFR (Non-Af Amer) Glucose Calcium Total Bilirubin Direct Bilirubin Neonat Total Bilirubin Neonat Direct Bilirubin Neonat Indirect Bili AST ALT Alkaline Phosphatase Total Protein Albumin TSH Free T4 Free T3 pg/mL Urine Color YELLOW Urine Appearance CLOUDY Urine pH 8.0 Ur Specific Daisy 1.008 Urine Protein NEGATIVE Urine Glucose (UA) NEGATIVE Urine Ketones NEGATIVE Urine Blood NEGATIVE Urine Nitrite NEGATIVE Urine Bilirubin NEGATIVE Urine Urobilinogen NEGATIVE Ur Leukocyte Esterase LARGE H Urine WBC (Auto) 36 Urine RBC (Auto) 0 Urine Bacteria (Auto) 1+ Squamous Epi Cells Auto 12 Urine Mucus (Auto) RARE Urine Ascorbic Acid NEGATIVE - EKG Interpretation by Me EKG shows normal: Sinus rhythm Rate: Normal Rhythm: NSR Additional EKG results interpreted by me: 11/18/18 11:42 Rate of 97, QTc 442 Discharge - Discharge Clinical Impression: Feeling faint, concern about exposure to scabies Qualifiers: Weeks of gestation: 33 weeks Qualified Code(s): Z3A.33 - 33 weeks gestation of UTI (urinary tract infection) Qualifiers: Urinary tract infection type: site unspecified Hematuria presence: without hematuria Qualified Code(s): N39.0 - Urinary tract infection, site not specified Condition: Stable Disposition: HOME, SELF-CARE Instructions: Cephalexin ([facility]), Intravenous (IV) Fluids ([facility]), Near Syncopal Episode ([facility]), Urinary Tract Infection ([facility]) Additional Instructions: Return immediately for any new or worsening symptoms Followup with your primary care provider, call tomorrow to make a followup a ppointment Increase oral fluids and stay well-hydrated Urine culture is pending, we will call if you need any different treatment Prescriptions: Cephalexin Monohydrate [Keflex 500 mg Capsule] 500 mg PO BID 5 Days capsule Referrals: RAMON APONTE, [facility] [NO LOCAL MD] - Follow up as needed [facility] [Provider Group] - Follow up tomorrow
[2018-11-18 10:58] LABS: ABSOLUTE LYMPHOCYTES (AUTO) 0.8 10^3/uL (0.5-4.7); ABSOLUTE MONOCYTES (AUTO) 0.5 10^3/uL (0.1-1.4); ABSOLUTE NEUT (AUTO) 4.1 10^3/uL (1.7-8.2); BASOPHILS % (AUTO) 0.3 % (0-2); EOSINOPHILS % (AUTO) 0.7 % (0-6); HEMOGLOBIN 11.1 g/dL (12.0-15.5); MEAN CORPUSCULAR HEMOGLOBIN 28.6 pg (27.0-33.4); MEAN CORPUSCULAR HGB CONC 33.6 g/dL (32.0-36.0); MEAN CORPUSCULAR VOLUME 85 fl (80-97); MONOCYTES % (AUTO) 9.2 % (3-13); PLATELET COUNT 141 10^3/uL (150-450); RED BLOOD COUNT 3.88 10^6/uL (3.72-5.28); SEGMENTED NEUTROPHILS % (AUTO) 75.8 % (42-78); TOTAL CELLS COUNTED % (AUTO) 100 %; WHITE BLOOD COUNT 5.4 10^3/uL (4.0-10.5)
[2018-11-18 11:13] LABS: ALANINE AMINOTRANSFERASE 24 U/L (9-52); ALBUMIN 3.3 g/dL (3.5-5.0); ALKALINE PHOSPHATASE 86 U/L (38-126); ANION GAP 5 (5-19); ASPARTATE AMINO TRANSFERASE 20 U/L (14-36); BILIRUBIN,DIRECT 0.2 mg/dL (0.0-0.4); BILIRUBIN,TOTAL 0.4 mg/dL (0.2-1.3); BLOOD UREA NITROGEN 8 mg/dL (7-20); CALCIUM 8.9 mg/dL (8.4-10.2); CARBON DIOXIDE 23 mmol/L (22-30); CHLORIDE 108 mmol/L (98-107); GLUCOSE 72 mg/dL (75-110); POTASSIUM 3.9 mmol/L (3.6-5.0); SODIUM 136.4 mmol/L (137-145); TOTAL PROTEIN 6.6 g/dL (6.3-8.2)
[2018-11-18 11:30] LABS: FREE T3 2.73 pg/mL (2.77-5.27); FREE T4 (FREE THYROXINE) 0.88 ng/dL (0.78-2.19)
[2018-11-18 11:43] LABS: THYROID STIMULATING HORMONE 1.2 uIU/mL (0.47-4.68)
[2018-11-18 11:49] LABS: APPEARANCE,URINE CLOUDY; BILIRUBIN,URINE NEGATIVE (NEGATIVE); COLOR,URINE YELLOW; GLUCOSE, URINE NEGATIVE (NEGATIVE); KETONES,URINE NEGATIVE (NEGATIVE); LEUKOCYTE ESTERASE,URINE LARGE (NEGATIVE); NITRITE,URINE NEGATIVE (NEGATIVE); PROTEIN,URINE NEGATIVE (NEGATIVE); URINE SPECIFIC GRAVITY 1.008; UROBILINOGEN,URINE NEGATIVE mg/dL (<2.0)
[2018-11-18 12:42] VITALS: BP 113/64
--- NOTE | 2018-11-18 18:44 | EKG REPORT ---
SEVERITY:- NORMAL ECG - SINUS RHYTHM : Confirmed by: Wisam Ta 18-Nov-2018 18:43:51
== END 2018-11-18 12:42 | disposition home or self-care (01) ==
LOC: ER 09:40
DX: O23.43 Unspecified infection of urinary tract in pregnancy, third trimester (principal); R55 Syncope and collapse; R42 Dizziness and giddiness; Z20.9 Contact with and (suspected) exposure to unspecified communicable disease; Z3A.33 33 weeks gestation of pregnancy
CPT/HCPCS: 93005; 99283; 96360; 96361; 36415; 87086; 84439; 84443; 85025; 80053; 81001; 84481; 93010; J7030

== ENCOUNTER 2018-12-11 06:23 | Outpatient (CLI) | payer MEDICAID ==
[2018-12-11 06:44] LABS: APPEARANCE,URINE CLEAR; BILIRUBIN,URINE NEGATIVE (NEGATIVE); COLOR,URINE STRAW; GLUCOSE, URINE NEGATIVE (NEGATIVE); KETONES,URINE NEGATIVE (NEGATIVE); LEUKOCYTE ESTERASE,URINE TRACE (NEGATIVE); NITRITE,URINE NEGATIVE (NEGATIVE); PROTEIN,URINE NEGATIVE (NEGATIVE); URINE SPECIFIC GRAVITY 1.005; UROBILINOGEN,URINE NEGATIVE mg/dL (<2.0)
[2018-12-11 06:59] LABS: URINE AMPHETAMINES SCREEN NEGATIVE; URINE BARBITURATES SCREEN NEGATIVE; URINE BENZODIAZEPINES SCREEN NEGATIVE; URINE COCAINE SCREEN NEGATIVE; URINE MARIJUANA (THC) SCREEN NEGATIVE; URINE METHADONE SCREEN NEGATIVE; URINE PHENCYCLIDINE SCREEN NEGATIVE
--- NOTE | 2018-12-11 07:00 | Non Stress Test Report ---
Non Stress Test Datetime Report Generated by CPN: 12/11/2018 07:00 DEMOGRAPHIC EGA NST: 37.1 INDICATION Indication for Study: Ordered by Provider MONITORING Monitor Explained: Monitor Explained; Test Explained; Patient Verbalized Understanding Time on Monitor: 12/11/2018 06:39 Time off Monitor: 12/11/2018 06:59 NST Duration: 20 NST INTERVENTIONS NST Interventions: None Physician Notified NST: Best BABY A: [id number] BABY A Movement : Present Contraction Frequency : 4-5 FHR Baseline : 140 Accelerations : 15X15 Decelerations : None Variability : Moderate 6-25bpm NST Review: Meets Criteria for Reactive NST NST Review and Verified By : ASHLEY Gonzales NST Results: Reactive NST REPORT Report Trigger: Send Report
== END 2018-12-11 09:05 | disposition home or self-care (01) ==
LOC: LC 06:23
PROVIDERS: ATTEND Student in an Organized Health Care Education/Training Program
PROC: 4A1HXCZ Monitoring of Products of Conception, Cardiac Rate, External Approach (ICD-10-PCS; principal; 2018-12-11)
DX: O47.1 False labor at or after 37 completed weeks of gestation (principal); Z3A.37 37 weeks gestation of pregnancy
CPT/HCPCS: 80307; 81005

== ENCOUNTER 2019-03-31 09:52 | Day surgery (SDC) | payer MEDICAID ==
[2019-03-29 11:13] LABS: HEMATOCRIT 40.7 % (36.0-47.0); HEMOGLOBIN 13.3 g/dL (12.0-15.5); MEAN CORPUSCULAR HEMOGLOBIN 27.2 pg (27.0-33.4); MEAN CORPUSCULAR HGB CONC 32.7 g/dL (32.0-36.0); MEAN CORPUSCULAR VOLUME 83 fl (80-97); PLATELET COUNT 214 10^3/uL (150-450); RED BLOOD COUNT 4.89 10^6/uL (3.72-5.28); RED CELL DISTRIBUTION WIDTH 16.5 % (11.5-14.0); WHITE BLOOD COUNT 4.2 10^3/uL (4.0-10.5)
[2019-03-29 11:15] LABS: APPEARANCE,URINE SLIGHTLY-CLOUDY; BILIRUBIN,URINE NEGATIVE (NEGATIVE); COLOR,URINE STRAW; GLUCOSE, URINE NEGATIVE (NEGATIVE); KETONES,URINE NEGATIVE (NEGATIVE); LEUKOCYTE ESTERASE,URINE NEGATIVE (NEGATIVE); NITRITE,URINE NEGATIVE (NEGATIVE); PROTEIN,URINE NEGATIVE (NEGATIVE); URINE SPECIFIC GRAVITY 1.014; UROBILINOGEN,URINE NEGATIVE mg/dL (<2.0)
[~2019-03-31 09:52] MED LIST: LACTATED RINGERS 1000 ML IV PRN; LIDOCAINE 0.5% INJ-PF (5 MG/ML) 50 ML SDV SUBCUT PRN
[2019-03-31] MEDS ORDERED: SCOPOLAMINE HYDROBROMIDE 1.5 MG PATCH.TD72 ONE (10:44)
[2019-03-31] MEDS ORDERED: FAMOTIDINE INJ/PF 20 MG/2 ML SDV IV ONE (10:44)
[2019-03-31] MEDS ORDERED: DEXAMETHASONE SOD PHOSPHATE INJ 4 MG/1 ML VIAL ONE (11:05)
[2019-03-31] MEDS ORDERED: ONDANSETRON HCL INJ/PF 4 MG/2 ML SDV ONE (11:05)
[2019-03-31] MEDS ORDERED: MIDAZOLAM 2 MG/2 ML INJ ONE (11:05)
[2019-03-31] MEDS ORDERED: FENTANYL CITRATE INJ/PF 100 MCG/2 ML AMPUL ONE (11:05)
[2019-03-31] MEDS ORDERED: PROPOFOL INJ 200 MG/20 ML VIAL IV ONE (11:06)
[2019-03-31] MEDS ORDERED: MORPHINE SULFATE 10 MG/ML INJ ONE (11:06)
[2019-03-31] MEDS ORDERED: LIDOCAINE 1% INJ (10 MG/ML) 10 ML MDV INJ ONE ×2 (12:30)
[2019-03-31] MEDS ORDERED: SUCCINYLCHOLINE CHLORIDE INJ 200 MG/10 ML VIAL ONE (12:39)
[2019-03-31] MEDS ORDERED: FENTANYL CITRATE INJ/PF 100 MCG/2 ML AMPUL IV PRN ×3 (12:40)
[2019-03-31] MEDS ORDERED: DIPHENHYDRAMINE HCL 50 MG/ML VIAL IV PRN (12:40)
[2019-03-31] MEDS ORDERED: MORPHINE SULFATE 10 MG/ML INJ IV PRN (12:40)
[2019-03-31] MEDS ORDERED: PROMETHAZINE HCL INJ 25 MG/1 ML VIAL IV PRN ×3 (12:40→13:50)
[2019-03-31] MEDS ORDERED: MEPERIDINE HCL/PF INJ 25 MG/1 ML DISP.SYRIN IV PRN (12:40)
--- NOTE | 2019-03-31 13:20 | Operative Report ---
Operative Report DATE OF SURGERY: 03/31/19 PREOPERATIVE DIAGNOSIS: 1. Multiparity. 2. Complete family status. 3. Kate res permanent sterilization POSTOPERATIVE DIAGNOSIS: Same OPERATION: Laparoscopic bilateral partial salpingectomy with Endoloops SURGEON: ROBERT BURGOS ANESTHESIA: GA TISSUE REMOVED OR ALTERED: Bilateral right and left partial fallopian tubes COMPLICATIONS: None ESTIMATED BLOOD LOSS: 5 ml INTRAOPERATIVE FINDINGS: Normal-appearing uterus, bilateral tubes and ovaries; grossly normal appearing liver and gallbladder PROCEDURE: The patient was taken to the operating room where general anesthesia was obtained without difficulty. She was then placed in dorsal supine lithotomy position and prepped and draped in the normal sterile fashion. [place] speculum was then placed in the patient's vagina and the anterior lip of the cervix grasped with a single-tooth tenaculum. An acorn uterine manipulator was then advanced into the uterus to provide a means of manipulation of the uterus. The speculum was then removed from the patient's cervix and vagina. Attention was then turned to the patient's abdomen where a 5 mm skin incision was then made in the umbilicus. The Optiview trocar with 0 laparoscope was then advanced without difficulty under direct visualization with the Optiview trocar. This was performed while tenting the abdominal wall. Intraperitoneal placement was confirmed by the direct visualization. Pneumoperitoneum was then obtained with approximately 4 L carbon dioxide gas. Survey of the patient's abdomen and pelvis revealed findings as noted above. Two 5 mm lateral ports were placed under direct visualization. The right fallopian tube was then identified and followed out to the fimbriated end. A PDS Endoloop was placed at the fimbriated end, abutting the ovary. The tube was the transected and the Endoloop cut. Hemostasis was noted. The right partial tube was removed through the trocar and handed off to the OR Tech. Attention was then turned to the left fallopian tube which was transected in the same manner. The tube was also handed to the OR Tech also. All operative sites were visualized and noted to be hemostatic. The CO2 gas wsa then turned off and allowed to escape from the patient's abdomen. All trocars were then removed. The skin at all trocar sites were closed with 4-0 Vicryl in a subcuticular fashion with overlying Dermabond. No antibiotics were indicated for this procedure. After completion of skin closure of the trocar sites attention was then turned to the vagina where the acorn uterine manipulator was removed and the bivalve speculum was replaced. Monsel's solution was applied to the tenaculum sites for hemostasis and the speculum was removed. Sponge, lap, needle and instrument counts were correct 2. The patient tolerated the procedure well and was taken to the recovery area awake and in stable condition.
[2019-03-31] MEDS ORDERED: OXYCODONE-ACETAMINOPHEN 5-325 MG TABLET PO PRN (13:47)
[2019-03-31] MEDS ORDERED: ONDANSETRON HCL INJ/PF 4 MG/2 ML SDV IV PRN (13:49)
[2019-03-31] MEDS ORDERED: OXYCODONE-ACETAMINOPHEN 5-325 MG TABLET ONE (14:02)
[2019-03-31 19:58] VITALS: BP 144/76
== END 2019-03-31 16:55 | disposition home or self-care (01) ==
LOC: OROUT 09:52
PROVIDERS: ATTEND Obstetrics & Gynecology
DX: Z30.2 Encounter for sterilization (principal)
CPT/HCPCS: 86900; 86901; 36415 ×2; 86850; 85027; 81005; 81025; 88302 ×2; 00840; 58670; J2250; J1100; J3010; J3490 ×2; J0330; J2405; J2704; S0028; 840; J2270

== ENCOUNTER 2020-07-28 18:30 | Emergency (ER) | payer MEDICAID ==
[2020-07-28] MEDS ORDERED: KETOROLAC TROMETHAMINE 60 MG/2 ML SDV IM ONE (19:43)
[2020-07-28] MEDS ORDERED: DEXAMETHASONE SOD PHOS INJ 10 MG/1 ML VIAL IM ONE (19:43)
--- NOTE | 2020-07-28 19:43 | ER Document Report ---
ED ENT - General Chief Complaint: Sore Throat Stated Complaint: SORE THROAT Time Seen by Provider: 07/28/20 19:39 Primary Care Provider: ARIAN CRUMP DO [Primary Care Provider] - Follow up as needed TRAVEL OUTSIDE OF THE [place] IN LAST 30 DAYS: No - HPI Notes: Patient is a 29-year-old female with no medical problems who presents with sore throat for the past week. She reports increased pain with swallowing but is able to swallow food. She denies fever, cough, shortness of breath, chest pain, and vomiting. She denies any recent sick contacts. She denies any prior histor y of tonsillectomy. - Related Data Allergies/Adverse Reactions: No Known Allergies Allergy (Verified 03/31/19 10:05) Past Medical History - General Information source: Patient - Social History Smoking Status: Unknown if Ever Smoked Family History: Reviewed & Not Pertinent - Past Medical History Cardiac Medical History: Denies: Hx Coronary Artery Disease, Hx Heart Attack, Hx Hypertension Pulmonary Medical History: Denies: Hx Asthma, Hx Bronchitis, Hx COPD, Hx Pneumonia Neurological Medical History: Denies: Hx Cerebrovascular Accident, Hx Seizures Renal/ Medical History: Denies: Hx Peritoneal Dialysis Musculoskeletal Medical History: Denies Hx Arthritis - Immunizations Hx Diphtheria, Pertussis, Tetanus Vaccination: Yes Review of Systems - Review of Systems Constitutional: No symptoms reported EENT: See HPI Cardiovascular: No symptoms reported Respiratory: No symptoms reported Gastrointestinal: No symptoms reported Genitourinary: No symptoms reported Female Genitourinary: No symptoms reported Musculoskeletal: No symptoms reported Skin: No symptoms reported Hematologic/Lymphatic: No symptoms reported Neurological/Psychological: No symptoms reported Physical Exam - Vital signs Vitals: Temp Pulse Resp BP Pulse Ox 98.2 F 104 H 18 131/85 H 99 07/28/20 18:49 07/28/20 18:49 07/28/20 18:49 07/28/20 18:49 07/28/20 18:49 - Notes Notes: PHYSICAL EXAMINATION: VITALS: Vitals reviewed and within normal limits. GENERAL: Well-appearing, well-nourished and in no acute distress. HEAD: Atraumatic, normocephalic. EYES: Pupils equal, round, and reactive to light, extraocular movements intact, sclera anicteric, conjunctiva are normal. ENT: Nares patent. Moist mucous membranes. Oropharynx clear without exudates, mild tonsillar hypertrophy. External ear nontender. Hearing grossly intact. NECK:Normal range of motion, supple without lymphadenopathy. LUNGS: Breath sounds clear to auscultation bilaterally and equal. No wheezes rales or rhonchi. HEART: Regular rate and rhythm without murmurs. PSYCH: Normal mood, normal affect. SKIN: Warm, Dry, normal turgor, no rashes or lesions noted. Course - Re-evaluation Re-evalutation: Presentation of several days of sore throat in an otherwise well-appearing patient. Rapid strep is negative. History and exam are not consistent with a retropharyngeal abscess or peritonsillar abscess. Airway is patent. No difficulty handling oral secretions. Vitals within normal limits. Patient was treated with a dose of dexamethasone and advised on symptomatic care. Suspect likely viral pharyngitis. At this time will discharge with return precautions and follow-up recommendations. Verbal discharge instructions given a the bedside and opportunity for questions given. Medication warnings reviewed. Patient is in agreement with this plan and has verbalized understanding of return precautions and the need for primary care follow-up in the next 24-72 hours. - Vital Signs Vital signs: Temp Pulse Resp BP Pulse Ox 97.4 F 92 18 137/97 H 100 07/28/20 20:41 07/28/20 20:41 07/28/20 20:41 07/28/20 20:41 07/28/20 20:41 - Laboratory Results Critical Laboratory Results Reviewed: No Critical Results - Radiology Results Critical Radiology Results Reviewed: No Critical Results Discharge - Discharge Clinical Impression: Sore throat, Viral pharyngitis Condition: Stable Disposition: HOME, SELF-CARE Additional Instructions: Your strep test is negative. Your symptoms are likely due to an viral infection and will resolve in the next 1-2 weeks. You have also been given a dose of steroids to help with your throat discomfort. Please continue to take ibuprofen 600 mg every 6 hours or Tylenol 1000 mg every 6 hours as needed for throat discomfort. You can also gargle with salt water. Continue to drink plenty of fluids. Follow-up with your primary care doctor in the next several days. Return if you become unable to swallow, have difficulty breathing, pass out, have persistent vomiting that prevents you from being able to tolerate fluids, or have any other symptoms that are concerning to you. Referrals: ARIAN CRUMP, DO [Primary Care Provider] - Follow up as needed
[2020-07-28 20:42] VITALS: BP 137/97
== END 2020-07-28 20:45 | disposition home or self-care (01) ==
LOC: ER 18:30
DX: J02.8 Acute pharyngitis due to other specified organisms (principal); B97.89 Other viral agents as the cause of diseases classified elsewhere
CPT/HCPCS: 99284; 96372; 87070; 87880; J1885; J1100